=== PATIENT | female | born 1985 | race Caucasian/White ===

== ENCOUNTER 2016-11-19 05:44 | Inpatient (IN) | payer MEDICAID ==
[2016-11-19] MEDS ORDERED: Sodium Chloride 0.9% 10 ML Syringe FLUSH PRN (06:36)
[2016-11-19] MEDS ORDERED: Sodium Chloride 0.9% 2.5 ML Syringe FLUSH PRN (06:36)
[2016-11-19] MEDS ORDERED: Citric Acid/Sodium Citrate Solution 30 ML Cup PO SCH (06:45)
[2016-11-19] MEDS: Lactated Ringers 1,000 ML IV SCH ×4 (06:53→13:53)
[2016-11-19] MEDS ORDERED: ceFAZolin 1 GM Vial ONE (07:10)
[2016-11-19] MEDS ORDERED: Ondansetron 4 MG/2 ML SDV ONE (07:10)
[2016-11-19] MEDS ORDERED: Morphine PF 10 MG/10 ML SDV ONE (07:11)
--- NOTE | 2016-11-19 07:12 | PCM.PREANE ---
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: no symptoms Respiratory: Reports: no symptoms Cardiovascular: Reports: no symptoms GI: Reports: no symptoms Other: Reports: none - PHYSICAL ASSESSMENT HR: 105 O2 Sat by Pulse Oximetry: 99 RR: 20 Height: 4 ft 11 in Weight: 68.492 kg ASA Class: 2E Mental Status: alert & oriented x3 Airway Class: Mallampati = 2 Dentition: Reports: normal dentition Thyro-Mental Finger Breadths: 3 Mouth Opening Finger Breadths: 3 ROM/Head Extension: full Respiratory Status: lungs clear to auscultation bilaterally Cardiovascular Status: regular rate & rhythm, normal S1, S2, no murmur, blood pressure WNL - LAB Values: Laboratory Last Values WBC 14.81 K/uL (4.0-11.0) H 11/19/16 06:52 RBC 4.80 M/uL (4.30-5.90) 11/19/16 06:52 Hgb 10.7 g/dL (12.0-16.0) L 11/19/16 06:52 Hct 33.4 % (36.0-46.0) L 11/19/16 06:52 MCV 69.6 fL (80.0-98.0) L 11/19/16 06:52 MCH 22.3 pg (27.0-32.0) L 11/19/16 06:52 MCHC 32.0 g/dL (31.0-37.0) 11/19/16 06:52 RDW Std Deviation 38.2 fl (28.0-62.0) 11/19/16 06:52 RDW Coeff of Ruth 15 % (11.0-15.0) 11/19/16 06:52 Plt Count 417 K/uL (150-400) H 11/19/16 06:52 MPV 10.10 fL (7.40-12.00) 11/19/16 06:52 Nucleated RBC % 0.4 /100WBC 11/19/16 06:52 Nucleated RBCs # 0 K/uL 11/19/16 06:52 - ALLERGIES Allergies/Adverse Reactions: Allergies Allergy/AdvReac Type Severity Reaction Status Date / Time acetaminophen Allergy Severe Airway Verified 11/06/16 11:02 [From Tylenol Allergy Tightness Multi-Symptom] chlorpheniramine Allergy Severe Airway Verified 11/06/16 11:02 [From Tylenol Allergy Tightness Multi-Symptom] phenylephrine HCl Allergy Severe Airway Verified 11/06/16 11:02 [From Tylenol Allergy Tightness Multi-Symptom] - ANESTHESIA PLAN Anesthesia Type Planned: general anesthesia, spinal - ACKNOWLEDGEMENTS Pt an appropriate candidate for the planned anesthesia: Yes Alternatives and risks of anesthesia discussed w pt/guardian: Yes Pt/Guardian understands and agree with anesthesia plan: Yes PreAnesthesia Questionnaire HEENT History: Reports: None Cardiovascular History: Reports: None Respiratory History: Reports: None Gastrointestinal History: Reports: Cholelithiasis Genitourinary History: Reports: UTI, recurrent PATTERN ROOM ATTENDANT History: Reports: : 4 Para: 3 LMP (Approximate): Musculoskeletal History: Reports: None Neurological History: Reports: None Psychiatric History: Reports: None Endocrine/Metabolic History: Reports: Diabetes, gestational (Diet controlled. Pt reports she has been very poor with checking her blood glucose levels at home ), Obesity/BMI 30+ Hematologic History: Reports: None Immunologic History: Reports: None Oncologic (Cancer) History: Reports: None Dermatologic History: Reports: None, Psoriasis - Infectious Disease History Infectious Disease History: Reports: Chicken pox, MRSA - Past Surgical History HEENT Surgical History: Reports: Adenoidectomy, Myringotomy w tube(s), Tonsillectomy Female Surgical History: Reports: section (x3 previous, 1 - epidural , 2 spinal) - SUBSTANCE USE Smoking Status *Q: Current Every Day Smoker (0.5 PPD) Tobacco Use Within Last Twelve Months: Cigarettes Second Hand Smoke Exposure: No Recreational Drug Use History: Yes Recreational Drug Type: Reports: Marijuana/Hashish (In the last month) Recreational Drug Last Use: 4 days ago - HOME MEDS Home Medications: Home Meds . [No Known Home Meds] 02/24/16 [History] - CURRENT (IN HOUSE) MEDS Current Meds: Current Medications Citric Acid/Sodium Citrate (Bicitra Solution) 30 ml PO .ONCE PIOTR Lactated Ringer's (Ringers, Lactated) 1,000 mls @ 500 mls/hr IV .BOLUS PIOTR Sodium Chloride (Saline Flush) 10 ml FLUSH ASDIRECTED PRN PRN Reason: Keep Vein Open Sodium Chloride (Saline Flush) 2.5 ml FLUSH ASDIRECTED PRN PRN Reason: Keep Vein Open
[2016-11-19] MEDS ORDERED: Oxytocin 10 Units/1 ML SDV ONE (07:13)
--- NOTE | 2016-11-19 07:45 | PCM.LDHP ---
L&D History of Present Illness - General Date of Service: 11/19/16 Admit Problem/Dx: Patient Status Order with Admit Dx/Problem 11/19/16 06:36 Patient Status [ADT] Routine Patient Status: Admit to Inpatient Admission Diagnosis/Problem: Reason for Admit: repeat section Nurse Unit Type: Labor and Delivery Admitting Physician: Jeremy Fall Attending Physician: Jeremy Fall Admission Diagnosis/Problem Admission Diagnosis/Problem Source of Information: Patient History Limitations: Reports: No limitations - History of Present Illness Improves with: Reports: None Worsens with: Reports: None Associated Symptoms: Reports: N - Related Data Allergies/Adverse Reactions: Allergies Allergy/AdvReac Type Severity Reaction Status Date / Time acetaminophen Allergy Severe Airway Verified 11/06/16 11:02 [From Tylenol Allergy Tightness Multi-Symptom] chlorpheniramine Allergy Severe Airway Verified 11/06/16 11:02 [From Tylenol Allergy Tightness Multi-Symptom] phenylephrine HCl Allergy Severe Airway Verified 11/06/16 11:02 [From Tylenol Allergy Tightness Multi-Symptom] Home Medications: Home Meds . 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 Pt reports she has been very poor with checking her blood glucose levels at home ), Obesity/BMI 30+ Hematologic History: Reports: None Immunologic History: Reports: None Oncologic (Cancer) History: Reports: None Dermatologic History: Reports: None, Psoriasis - Infectious Disease History Infectious Disease History: Reports: Chicken pox, MRSA - Past Surgical History HEENT Surgical History: Reports: Adenoidectomy, Myringotomy w tube(s), Tonsillectomy Female Surgical History: Reports: section (x3 previous, 1 - epidural , 2 spinal) Social & Family History - Family History Family Medical History: Noncontributory HEENT: Reports: None Neurological: Reports: CVA - Tobacco Use Smoking Status *Q: Current Every Day Smoker (0.5 PPD) Years of Tobacco use: 10 Packs/Tins Daily: 0.5 Second Hand Smoke Exposure: No - Caffeine Use Caffeine Use: Reports: Coffee, Soda Caffeine Use Comment: 2 drinks/day - Recreational Drug Use Recreational Drug Use: Yes Drug Use in Last 12 Months: Yes Recreational Drug Type: Reports: Marijuana/Hashish (In the last month) Recreational Drug Use Frequency: Socially Recreational Drug Last Use: 4 days ago H&P Review of Systems - Review of Systems: Review Of Systems: See Below General: Reports: no symptoms HEENT: Reports: no symptoms Pulmonary: Reports: no symptoms Cardiovascular: Reports: no symptoms Gastrointestinal: Reports: No symptoms Genitourinary: Reports: no symptoms Musculoskeletal: Reports: no symptoms Skin: Reports: no symptoms Psychiatric: Reports: no symptoms Neurological: Reports: no symptoms Hematologic/Lymphatic: Reports: no symptoms Immunologic: Reports: no symptoms L&D Exam - Exam Exam: See Below - Vital Signs Vital Signs: Last Vital Signs Temp Pulse 105 H 11/19/16 07:12 Resp 20 11/19/16 07:12 BP Pulse Ox 99 11/19/16 07:12 Weight: 68.492 kg - OB Specific Fundal Height in cm: 38 Contraction Intensity: Mild to Moderate movement: active heart tones: present Presentation: Vertex - Patient Data Lab Results last 24 hrs: Laboratory Results - last 24 hr 11/19/16 Range/Units 06:52 WBC 14.81 H (4.0-11.0) K/uL RBC 4.80 (4.30-5.90) M/uL Hgb 10.7 L (12.0-16.0) g/dL Hct 33.4 L (36.0-46.0) % MCV 69.6 L (80.0-98.0) fL MCH 22.3 L (27.0-32.0) pg MCHC 32.0 (31.0-37.0) g/dL RDW Std Deviation 38.2 (28.0-62.0) fl RDW Coeff of Ruth 15 (11.0-15.0) % Plt Count 417 H (150-400) K/uL MPV 10.10 (7.40-12.00) fL Nucleated RBC % 0.4 /100WBC Nucleated RBCs # 0 K/uL Result Diagrams: 11/19/16 06:52 Problem List Initiated/Reviewed/Updated: Yes Orders Last 24hrs: Active Orders 24 hr Category Date Time Status Patient Status [ADT] Routine ADT 11/19/16 06:36 Active Non Stress Test [RC] PER UNIT ROUTINE Care 11/19/16 06:36 Active Notify Provider Vital Signs [RC] PRN Care 11/19/16 06:38 Active Procedure Site Prep Instruct [RC] ASDIRECTED Care 11/19/16 06:36 Active Up ad Christen [RC] ASDIRECTED Care 11/19/16 06:36 Active Verify Patient Consent Obtain [RC] ASDIRECTED Care 11/19/16 06:36 Active Vital Signs [RC] PER UNIT ROUTINE Care 11/19/16 06:36 Active TYPE AND SCREEN [BBK] Routine Lab 11/19/16 06:52 Received Citric Acid/Sodium Citrate [Bicitra Solution] Med 11/19/16 06:45 Active 30 ml PO .ONCE Lactated Ringers [Ringers, Lactated] 1,000 ml Med 11/19/16 06:45 Active IV .BOLUS Sodium Chloride 0.9% [Saline Flush] Med 11/19/16 06:36 Active 10 ml FLUSH ASDIRECTED PRN Sodium Chloride 0.9% [Saline Flush] Med 11/19/16 06:36 Active 2.5 ml FLUSH ASDIRECTED PRN Peripheral IV Insertion Adult [OM.PC] Routine Oth 11/19/16 06:36 Ordered Schedule Procedure [COMM] Per Unit Routine Oth 11/19/16 06:36 Ordered Resuscitation Status Routine Resus Stat 11/19/16 06:36 Ordered Medication Orders Citric Acid/Sodium Citrate (Bicitra Solution) 30 ml PO .ONCE PIOTR Last Admin: 11/19/16 07:18 Dose: 30 ml Lactated Ringer's (Ringers, Lactated) 1,000 mls @ 500 mls/hr IV .BOLUS PIOTR Last Admin: 11/19/16 07:18 Dose: 999 mls/hr Infusion: 11/19/16 07:18 Dose: 0 mls/hr Infusion: 11/19/16 07:18 Dose: 0 mls/hr Admin: 11/19/16 06:53 Dose: 500 mls/hr Sodium Chloride (Saline Flush) 10 ml FLUSH ASDIRECTED PRN PRN Reason: Keep Vein Open Sodium Chloride (Saline Flush) 2.5 ml FLUSH ASDIRECTED PRN PRN Reason: Keep Vein Open Assessment/Plan Comment:: Repeat C/section with tubal ligation approved by the committee.
[2016-11-19] MEDS ORDERED: fentaNYL 100 MCG/2 ML SDV ONE (08:14)
[2016-11-19] MEDS ORDERED: Midazolam 1 MG/ML 2 ML SDV ONE (08:27)
[2016-11-19] MEDS ORDERED: fentaNYL 100 MCG/2 ML SDV IVPUSH PRN ×2 (08:32→09:27)
[2016-11-19] MEDS ORDERED: Naloxone 0.4 MG/ML Syringe IVPUSH PRN (08:32)
[2016-11-19] MEDS ORDERED: Nalbuphine 10 MG/1 ML Vial IVPUSH PRN (08:32)
[2016-11-19] MEDS ORDERED: Octyl 2-Cyanoacrylate 1 Tube ONE (08:34)
[2016-11-19] MEDS ORDERED: Ibuprofen 800 MG Tab PO PRN (08:45)
[2016-11-19] MEDS ORDERED: diphenhydrAMINE 50 MG/ML SDV IVPUSH PRN (08:45)
[2016-11-19] MEDS ORDERED: Lanolin 100% Cream 7 GM Tube TOP PRN (08:45)
[2016-11-19] MEDS ORDERED: Bisacodyl 10 MG Supp RECTAL PRN (08:45)
[2016-11-19] MEDS ORDERED: Ondansetron 4 MG/2 ML SDV IV PRN (08:45)
[2016-11-19] MEDS: Ketorolac 30 MG/ML SDV IVPUSH SCH (09:02)
--- NOTE | 2016-11-19 09:30 | PCM.POSTAN ---
POST ANESTHESIA ASSESSMENT - MENTAL STATUS Mental Status: alert, oriented - VITAL SIGNS Pulse Rate: 62 SaO2: 98 Resp Rate: 11 Blood Pressure: 117/66 - RESPIRATORY Respiratory Status: respiratory rate WNL, airway patent, O2 saturation stable - CARDIOVASCULAR CV Status: pulse rate WNL, blood pressure stable - GASTROINTESTINAL GI Status: no symptoms - PAIN Pain Score: 2 (discomfort behind R shoulder) - POST OP HYDRATION Hydration Status: adequate & stable - OBSERVATIONS Free Text/Narrative:: Pt doing well. Does complain of pain to back of right shoulder - most likely d/ t referred pain from blood on the diaphragm - explained this to patient and she verbalized understanding. Pt finally agrees to take a dose of pain medication prior to return to her room. VSS.
[2016-11-19] MEDS: Docusate Sodium 100 MG Cap PO SCH (09:50)
--- NOTE | 2016-11-19 12:54 | OR ---
SURGEON: Jeremy Fall MD DATE OF PROCEDURE: PREOPERATIVE DIAGNOSES: Term , previous section x3 is scheduled for repeat later this week. She is admitted for an active labor. POSTOPERATIVE DIAGNOSES: Term , previous section x3 is scheduled for repeat later this week. She is admitted for an active labor. OPERATION PERFORMED: Repeat low transverse section with bilateral Lorie tubal ligation. MARINE STEAMFITTER: OR nurse. ANESTHESIA: Spinal by Zahida Lewis and Dr. Collins. ESTIMATED BLOOD LOSS: 700 mL. COMPLICATIONS: None. FINDINGS: Female fetus. scores were reported to be 8 and 9. The weight is not available at this time. INDICATION FOR SURGERY: This patient is term. She is scheduled for elective repeat section later this week. She is 39+ weeks. This is her fourth section. She is approved by the ethics committee for bilateral tubal ligation. PROCEDURE IN DETAIL: The patient was brought to the OR, properly identified, and after adequate level of spinal anesthesia. With a Ramos catheter in the bladder, a low transverse skin incision was done excising the old scar. The Yudi's fascia and rectus fascia were opened in direction of the incision. The 2 recti muscles were and peritoneal cavity was entered. Bladder flap was raised in the usual manner pushing the bladder away from the lower uterine segment. Low transverse uterine incision was done, extended manually with the hand, and fluid was clear. The fetus was in vertex presentation and it is delivered in this way without any problem. Fetus cried immediately. Later on, the scores reported to be [address] Santos was the crime prevention police officer attended the section. The placenta was delivered complete and intact without any problem and then repair of the lower uterine segment was done with 2-0 Vicryl continuous interlocking in 2 layers. Reperitonealization was done with 3-0 Vicryl continuous. Then, attention was paid to the tubes in both side and a segment of the tubes of 2 to 3 cm tied in a knuckle and using chromic catgut transected and sent for histopathology thus bilateral tubal ligation accomplished. Once this got done, then the peritoneal cavity evacuated completely from all blood and blood clot and closed with 3-0 Vicryl continuous. The rectus fascia was closed with #1 PDS double strand continuous. The Yudi's fascia was closed with 3-0 Vicryl continuous. The skin was closed with skin clips Insorb and Dermabond. Instrument and sponge count were correct. The patient tolerated the procedure well, and went to recovery room in stable general condition. ALVIN RENE /[id number]
--- NOTE | 2016-11-19 16:53 | US ---
EXAMINATION: Limited abdominal ultrasound HISTORY: Potential abdominal bleeding COMPARISON: None TECHNIQUE: Grayscale images provided FINDINGS: There is a small amount of free pelvic fluid noted within the provided images. Uterus is n ot well characterized. No definite abdominal masses. IMPRESSION: 1. There is free fluid noted within the abdomen of uncertain significance. Follow-up may be benefici al. Bleeding within the abdomen cannot be excluded with the provided images.
[2016-11-19] MEDS ORDERED: Phenylephrine 10 MG in Sodium Chloride 0.9% 99 ML IV SCH ×3 (18:15→19:15)
[2016-11-19] MEDS ORDERED: NORMAL SALINE IV SCH (18:45)
[2016-11-19] MEDS ORDERED: PHENYLEPHRINE IV SCH (18:45)
[2016-11-20] MEDS: Acetaminophen/oxyCODONE 325-5 MG Tab PO PRN ×4 (00:53→21:23)
[2016-11-20] MEDS: Docusate Sodium 100 MG Cap PO SCH ×3 (01:55→21:23)
[2016-11-20] MEDS: Lactated Ringers 1,000 ML IV SCH (05:03)
[2016-11-20 05:39] LABS: CHLORIDE,CL 107 mmol/L (98-110); SODIUM,NA 137 mmol/L (136-146)
[2016-11-20] MEDS: Ketorolac 30 MG/ML SDV IVPUSH SCH (08:58)
--- NOTE | 2016-11-20 09:15 | PCM.SURGPN ---
- General Info POD#: 1 Functional Status: Reports: pain controlled - Review of Systems General: Reports: no symptoms HEENT: Reports: no symptoms Pulmonary: Reports: no symptoms Cardiovascular: Reports: no symptoms Gastrointestinal: Reports: No symptoms Genitourinary: Reports: no symptoms Musculoskeletal: Reports: no symptoms Skin: Reports: no symptoms Neurological: Reports: no symptoms Psychiatric: Reports: no symptoms - Patient Data Vitals - most recent: Last Vital Signs Temp 36.6 C 11/20/16 07:59 Pulse 78 11/20/16 09:00 Resp 22 H 11/20/16 09:00 BP 107/68 11/20/16 09:00 Pulse Ox 96 11/20/16 09:00 Weight - most recent: 68.492 kg I&O - last 24 hours: Intake & Output 11/19/16 11/20/16 11/20/16 22:59 06:59 14:59 Intake Total 1197 1100 Output Total 250 Balance 1197 850 Lab Results last 24 hrs: Laboratory Results - last 24 hr 11/19/16 11/19/16 11/19/16 Range/Units 06:52 12:44 13:03 Hgb 7.5 L (12.0-16.0) g/dL Hct 23.5 L (36.0-46.0) % Sodium (136-146) mmol/L Potassium (3.5-5.1) mmol/L Chloride (98-110) mmol/L Carbon Dioxide (21-31) mmol/L BUN (6.0-23.0) mg/dL Creatinine (0.6-1.5) mg/dL Est Cr Clr Drug Dosing mL/min Estimated GFR (MDRD) ml/min Glucose (60-110) mg/dL POC Glucose 157 H (60-110) mg/dL Calcium (8.8-10.8) mg/dL Total Bilirubin (0.1-1.5) mg/dL AST (5-40) IU/L ALT (8-54) IU/L Alkaline Phosphatase (40-150) Total Protein (6.0-8.0) g/dL Albumin (3.5-5.0) g/dL Globulin (2.0-3.5) g/dL Albumin/Globulin Ratio (1.3-2.8) Blood Type A POSITIVE Antibody Screen NEGATIVE Crossmatch See Detail 11/19/16 11/19/16 11/19/16 Range/Units 17:14 18:35 23:59 Hgb 10.7 L 11.3 L (12.0-16.0) g/dL Hct 31.7 L 32.3 L (36.0-46.0) % Sodium (136-146) mmol/L Potassium (3.5-5.1) mmol/L Chloride (98-110) mmol/L Carbon Dioxide (21-31) mmol/L BUN (6.0-23.0) mg/dL Creatinine (0.6-1.5) mg/dL Est Cr Clr Drug Dosing mL/min Estimated GFR (MDRD) ml/min Glucose (60-110) mg/dL POC Glucose 104 (60-110) mg/dL Calcium (8.8-10.8) mg/dL Total Bilirubin (0.1-1.5) mg/dL AST (5-40) IU/L ALT (8-54) IU/L Alkaline Phosphatase (40-150) Total Protein (6.0-8.0) g/dL Albumin (3.5-5.0) g/dL Globulin (2.0-3.5) g/dL Albumin/Globulin Ratio (1.3-2.8) Blood Type Antibody Screen Crossmatch 11/20/16 11/20/16 Range/Units 05:00 05:00 Hgb 10.5 L (12.0-16.0) g/dL Hct 30.6 L (36.0-46.0) % Sodium 137 (136-146) mmol/L Potassium 4.5 (3.5-5.1) mmol/L Chloride 107 (98-110) mmol/L Carbon Dioxide 20 L (21-31) mmol/L BUN 10 (6.0-23.0) mg/dL Creatinine 0.7 (0.6-1.5) mg/dL Est Cr Clr Drug Dosing 83.64 mL/min Estimated GFR (MDRD) > 60.0 ml/min Glucose 101 (60-110) mg/dL POC Glucose (60-110) mg/dL Calcium 7.6 L (8.8-10.8) mg/dL Total Bilirubin 0.5 (0.1-1.5) mg/dL AST 14 (5-40) IU/L ALT 8 (8-54) IU/L Alkaline Phosphatase 125 (40-150) Total Protein 4.3 L (6.0-8.0) g/dL Albumin 2.4 L (3.5-5.0) g/dL Globulin 1.9 L (2.0-3.5) g/dL Albumin/Globulin Ratio 1.3 (1.3-2.8) Blood Type Antibody Screen Crossmatch Med Orders - Current: Current Medications Bisacodyl (Dulcolax) 10 mg RECTAL .ONCE PRN PRN Reason: Constipation Citric Acid/Sodium Citrate (Bicitra Solution) 30 ml PO .ONCE PIOTR Last Admin: 11/19/16 07:18 Dose: 30 ml Diphenhydramine HCl (Benadryl) 25 mg IVPUSH Q6H PRN PRN Reason: Itching or Nausea Docusate Sodium (Colace) 100 mg PO BID PIOTR Last Admin: 11/20/16 01:55 Dose: Not Given Emollient Ointment (Lansinoh Hpa) 0 gm TOP ASDIRECTED PRN PRN Reason: Sore Nipples Lactated Ringer's (Ringers, Lactated) 1,000 mls @ 500 mls/hr IV .BOLUS PIOTR Last Admin: 11/19/16 07:18 Dose: 999 mls/hr Lactated Ringer's (Ringers, Lactated) 1,000 mls @ 125 mls/hr IV ASDIRECTED PIOTR Last Admin: 11/20/16 05:03 Dose: 125 mls/hr Phenylephrine HCl 10 mg/ (Sodium Chloride) 100 mls @ 12 mls/hr IV TITRATE PIOTR; 0.02 MG/MIN PRN Reason: Protocol Last Titration: 11/20/16 03:30 Dose: 0 mg/min, 0 mls/hr Ibuprofen (Motrin) 800 mg PO Q8H PRN PRN Reason: mild pain or fever Ondansetron HCl (Zofran) 4 mg IV Q4H PRN PRN Reason: Nausea/Vomiting Oxycodone/Acetaminophen (Percocet 325-5 Mg) 1 tab PO Q4H PRN PRN Reason: Pain (moderate 4-6) Last Admin: 11/20/16 04:59 Dose: 1 tab Oxycodone/Acetaminophen (Percocet 325-5 Mg) 2 tab PO Q4H PRN PRN Reason: Pain (moderate 4-6) Sodium Chloride (Saline Flush) 10 ml FLUSH ASDIRECTED PRN PRN Reason: Keep Vein Open Sodium Chloride (Saline Flush) 2.5 ml FLUSH ASDIRECTED PRN PRN Reason: Keep Vein Open Discontinued Medications Cefazolin Sodium (Ancef) Confirm Administered Dose 1 gm .ROUTE .STK-MED ONE Stop: 11/19/16 07:11 Fentanyl (Sublimaze) Confirm Administered Dose 100 mcg .ROUTE .STK-MED ONE Stop: 11/19/16 08:15 Fentanyl (Sublimaze) 50 mcg IVPUSH Q60M PRN PRN Reason: Breakthrough Pain Stop: 11/20/16 08:33 Fentanyl (Sublimaze) 50 mcg IVPUSH .Q5MIN PRN PRN Reason: Pain Stop: 11/23/16 09:28 Last Admin: 11/19/16 09:30 Dose: 50 mcg Phenylephrine HCl 10 mg/ (Sodium Chloride) 100 mls @ 0.3 drops/hr IV TITRATE PIOTR PRN Reason: Protocol Phenylephrine HCl 10 mg/ (Sodium Chloride) 100 mls @ 0 mls/hr IV TITRATE PIOTR; Titrate PRN Reason: Protocol Phenylephrine HCl 10 mg/ (Sodium Chloride) 100 mls @ 12 mls/hr IV TITRATE PIOTR; 0.02 MG/MIN PRN Reason: Protocol Ketorolac Tromethamine (Toradol) 30 mg IVPUSH Q6H PIOTR Stop: 11/20/16 08:46 Last Admin: 11/20/16 08:58 Dose: Not Given Midazolam HCl (Versed 1 Mg/Ml) Confirm Administered Dose 2 mg .ROUTE .STK-MED ONE Stop: 11/19/16 08:28 Morphine Sulfate (Duramorph Pf) Confirm Administered Dose 10 mg .ROUTE .STK-MED ONE Stop: 11/19/16 07:12 Nalbuphine HCl (Nubain) 2.5 mg IVPUSH Q3H PRN PRN Reason: Pruritis Stop: 11/20/16 08:33 Naloxone HCl (Narcan) 0.1 mg IVPUSH ONETIME PRN PRN Reason: RR<6 WITH STIMULATION Stop: 11/20/16 08:34 Octyl Cyanoacrylate (Dermabond Advance) Confirm Administered Dose 1 applic .ROUTE .STK-MED ONE Stop: 11/19/16 08:35 Ondansetron HCl (Zofran) Confirm Administered Dose 4 mg .ROUTE .STK-MED ONE Stop: 11/19/16 07:11 Oxytocin (Pitocin) Confirm Administered Dose 20 unit .ROUTE .STK-MED ONE Stop: 11/19/16 07:14 - Exam Wound/Incisions: healing well General: alert, oriented HEENT: Pupils equal Neck: supple Lungs: Clear to auscultation, Normal respiratory effort Cardiovascular: regular rate, regular rhythm Abdomen: bowel sounds present, soft, no tenderness, no distension Extremities: no edema Skin: warm, dry, intact Neurological: no new focal deficit Psy/Mental Status: alert, normal affect, normal mood - Problem List Review Problem List Initiated/Reviewed/Updated: Yes - My Orders Last 24 Hours: Active Orders 24 hr Category Date Time Status Patient Status [ADT] Routine ADT 11/19/16 08:45 Active Ambulate [RC] PER UNIT ROUTINE Care 11/19/16 08:45 Active Antiembolic Devices [RC] PER UNIT ROUTINE Care 11/19/16 08:46 Active Bradycardia-Neuroaxis [employer] [RC] ROUTINE Care 11/19/16 08:32 Active Communication Order [RC] PER UNIT ROUTINE Care 11/19/16 08:45 Active Communication Order [RC] PER UNIT ROUTINE Care 11/19/16 08:45 Active Communication Order [RC] Per Unit Routine Care 11/19/16 08:45 Active Hypertension-Neuroaxis [employer] [RC] ROUTINE Care 11/19/16 08:32 Active Hypotension-Neuroaxis [employer] [RC] ROUTINE Care 11/19/16 08:32 Active May Shower [RC] ASDIRECTED Care 11/19/16 08:45 Active Oxygen Therapy [RC] PER UNIT ROUTINE Care 11/19/16 08:32 Active RT Incentive Spirometry [RC] ASDIRECTED Care 11/19/16 08:45 Active Vital Signs [RC] PER UNIT ROUTINE Care 11/19/16 08:45 Active Vital Signs [RC] Q1H Care 11/19/16 08:32 Active Abdomen Ltd [US] Urgent Exams 11/19/16 18:34 Taken HEMOGLOBIN/HEMATOCRIT,HH [HEME] Routine Lab 11/20/16 12:00 Ordered Acetaminophen/oxyCODONE [Percocet 325-5 MG] Med 11/19/16 08:45 Active 1 tab PO Q4H PRN Acetaminophen/oxyCODONE [Percocet 325-5 MG] Med 11/19/16 08:45 Active 2 tab PO Q4H PRN Bisacodyl [Dulcolax] Med 11/19/16 08:45 Active 10 mg RECTAL .ONCE PRN Docusate Sodium [Colace] Med 11/19/16 09:00 Active 100 mg PO BID Ibuprofen [Motrin] Med 11/19/16 08:45 Active 800 mg PO Q8H PRN Lactated Ringers [Ringers, Lactated] 1,000 ml Med 11/19/16 08:45 Active IV ASDIRECTED Lanolin [Lansinoh HPA] Med 11/19/16 08:45 Active See Dose Instructions TOP ASDIRECTED PRN Ondansetron [Zofran] Med 11/19/16 08:45 Active 4 mg IV Q4H PRN Phenylephrine [Juan Ramon-Synephrine] 10 mg Med 11/19/16 19:15 Active Sodium Chloride 0.9% [Normal Saline] 99 ml IV TITRATE diphenhydrAMINE [Benadryl] Med 11/19/16 08:45 Active 25 mg IVPUSH Q6H PRN AN Neuroaxis [employer] Precaution Reflex [OM.PC] PER Oth 11/19/16 08:45 Ordered UNIT ROUTINE AN Neuroaxis [employer] Precaution Reflex [OM.PC] PER Ot 11/20/16 08:45 Ordered UNIT ROUTINE Assess Lochia [WOMSER] Per Unit Routine Ot 11/19/16 08:45 Ordered Assess Uterine Involution [WOMSER] Per Unit Routine Oth 11/19/16 08:45 Ordered Breast Pump [WOMSER] Per Unit Routine Oth 11/19/16 08:45 Ordered Peripheral IV Discontinue [OM.PC] Routine Ot 11/19/16 08:45 Ordered Sequential Compression Device [OM.PC] Per Unit Routine Ot 11/19/16 08:45 Ordered Transfuse PRBC [Transfuse Red Blood Cells] [COMM] Stat Ot 11/19/16 19:14 Ordered Medication Orders Bisacodyl (Dulcolax) 10 mg RECTAL .ONCE PRN PRN Reason: Constipation Citric Acid/Sodium Citrate (Bicitra Solution) 30 ml PO .ONCE PIOTR Last Admin: 11/19/16 07:18 Dose: 30 ml Diphenhydramine HCl (Benadryl) 25 mg IVPUSH Q6H PRN PRN Reason: Itching or Nausea Docusate Sodium (Colace) 100 mg PO BID PIOTR Last Admin: 11/20/16 01:55 Dose: Admin: 11/19/16 09:50 Dose: Not Given Emollient Ointment (Lansinoh Hpa) 0 gm TOP ASDIRECTED PRN PRN Reason: Sore Nipples Lactated Ringer's (Ringers, Lactated) 1,000 mls @ 500 mls/hr IV .BOLUS PIOTR Last Admin: 11/19/16 07:18 Dose: 999 mls/hr Infusion: 11/19/16 07:18 Dose: 0 mls/hr Infusion: 11/19/16 07:18 Dose: 0 mls/hr Admin: 11/19/16 06:53 Dose: 500 mls/hr Lactated Ringer's (Ringers, Lactated) 1,000 mls @ 125 mls/hr IV ASDIRECTED PIOTR Last Admin: 11/20/16 05:03 Dose: 125 mls/hr Infusion: 11/19/16 15:53 Dose: 500 mls/hr Admin: 11/19/16 13:53 Dose: 500 mls/hr Infusion: 11/19/16 13:53 Dose: 125 mls/hr Admin: 11/19/16 10:43 Dose: 125 mls/hr Phenylephrine HCl 10 mg/ (Sodium Chloride) 100 mls @ 12 mls/hr IV TITRATE PIOTR; 0.02 MG/MIN PRN Reason: Protocol Last Titration: 11/20/16 03:30 Dose: 0 mg/min, 0 mls/hr Titration: 11/20/16 03:14 Dose: 0 mg/min, 3.6 mls/hr Titration: 11/20/16 02:50 Dose: 0 mg/min, 4.8 mls/hr Titration: 11/20/16 02:33 Dose: 0.01 mg/min, 6 mls/hr Titration: 11/20/16 02:11 Dose: 0.01 mg/min, 7.2 mls/hr Titration: 11/20/16 01:56 Dose: 0.01 mg/min, 8.4 mls/hr Titration: 11/20/16 00:55 Dose: 0.01 mg/min, 9.6 mls/hr Titration: 11/19/16 23:39 Dose: 0.01 mg/min, 10.8 mls/hr Admin: 11/19/16 19:15 Dose: 0.02 mg/min, 12 mls/hr Ibuprofen (Motrin) 800 mg PO Q8H PRN PRN Reason: mild pain or fever Ondansetron HCl (Zofran) 4 mg IV Q4H PRN PRN Reason: Nausea/Vomiting Oxycodone/Acetaminophen (Percocet 325-5 Mg) 1 tab PO Q4H PRN PRN Reason: Pain (moderate 4-6) Last Admin: 11/20/16 04:59 Dose: 1 tab Admin: 11/20/16 00:53 Dose: 1 tab Oxycodone/Acetaminophen (Percocet 325-5 Mg) 2 tab PO Q4H PRN PRN Reason: Pain (moderate 4-6) Sodium Chloride (Saline Flush) 10 ml FLUSH ASDIRECTED PRN PRN Reason: Keep Vein Open Sodium Chloride (Saline Flush) 2.5 ml FLUSH ASDIRECTED PRN PRN Reason: Keep Vein Open - Assessment Assessment (Free Text/Narrative):: Blood pressure and H&H is stabilized now the patient is making adequate urine. I would repeat the H&H at noon start her on liquid diet today and we'll reevaluate at noon.
--- NOTE | 2016-11-20 09:39 | PCM48HPAN ---
Post Anesthesia Note - EVALUATION WITHIN 48HRS OF ANESTHETIC Vital Signs in Normal Range: Yes Patient Participated in Evaluation: Yes Respiratory Function Stable: Yes Airway Patent: Yes Cardiovascular Function Stable: Yes Hydration Status Stable: Yes Pain Control Satisfactory: Yes Nausea and Vomiting Control Satisfactory: Yes Mental Status Recovered: Yes - COMMENTS/OBSERVATIONS Free Text/Narrative:: Pt has had some significant abdominal bleeding and was tx to ICU yesterday. After receiving 4 units PRBCs and being weaned off a Juan Ramon gtt, pt is stable. She verbalizes that she actually feels better this morning despite everything she has been thru. It appears Dr. Fall will reevaluate her @ noon today.
--- NOTE | 2016-11-20 14:31 | US ---
EXAM DATE: 11/19/16 PATIENT'S AGE: 31 Patient: RITA MARSH Facility: [place], [place] : 1985 Study: US Abdomen [id number] 7:13:20 PM Ordering Physician: Eufemia Luna Final Report: INDICATION: this morning with hypotension TECHNIQUE: Ultrasound abdomen limited. Sonographic images of the abdomen were obtained using ramsey-scale images. COMPARISON: Same date at 1:25 p.m. FINDINGS: Limited ultrasound of the abdomen demonstrates slight increase in fluid within the left abdomen compared to the earlier ultrasound. There is also moderate amount of fluid surrounding the spleen and left kidney and a small amount of fluid within the right side of the abdomen. Small amount of debris is noted within the uterus, likely within normal limits for post state. IMPRESSION: Slight increase in free fluid within the abdomen and pelvis. These findings were discussed with at 11/20/2015 on 11/19/2016. Dictated by Elma Mclaughlin MD @ Nov 19 2016 7:33PM (Electronic Signature) Report Signed by Proxy and Original Signed Document filed in the Medical Record. [facility]
[2016-11-21] MEDS: Acetaminophen/oxyCODONE 325-5 MG Tab PO PRN ×3 (00:45→11:49)
--- NOTE | 2016-11-21 07:02 | PN ---
Ms. Ellsworth is 31. She had a repeat section with tubal ligation early this morning. The patient had no intraoperative complication and no evidence of bleeding. Around 1:30, the patient started getting hypotensive and her blood pressure was ranging anywhere between 75/40, pulse is about 110. She was making urine, but she could not make an adequate amount of urine. I did a stat H and H on the patient and hemoglobin was 6.4, which has dropped from 10 preoperatively. The patient was typed and crossed for 4 units and 2 units of packed cells transfused immediately. The patient improved; however, just continued to be fragile as far as blood pressure and pulse. We decided to move the patient to the intensive care for further monitoring and better observation. Repeated her H and H. After the blood transfusion, hemoglobin is 10 and hematocrit of 30, which is equivalent to what it was before preoperatively. The patient was alert and oriented to time and place. Her color looked better. She started making urine. Abdominal ultrasound shows there is some collection of fluid on the left side, could represent intraabdominal bleed. At this time, I discussed this finding with the patient and I elected at this time, to give her more blood transfusion and to manage her conservatively and to watch her blood pressure, urine output, and pulse, and repeat her hematocrit and hemoglobin. If the patient continued to be stable, currently her blood pressure is holding and stable, then we will continue with our conservative management. If the patient's blood pressure drops further, then I was planning to take the patient back to Surgery and do exploration trying to see if there any source of the bleeding. I discussed this plan of management with Dr. Collins and Dr. Roman Lewis, and I also explained it to the patient and her and currently, we can proceed with conservative approach and management. ALVIN / EDGARD /[id number]
[2016-11-21] MEDS: Docusate Sodium 100 MG Cap PO SCH (08:34)
[2016-11-21 13:20] VITALS: BP 134/78
--- NOTE | 2016-11-21 15:42 | PCM.DCSUM1 ---
Discharge Summary - Discharge Data Discharge Date: 11/21/16 Discharge Disposition: Home, Self-Care 01 Condition: Good - Discharge Plan Home Medications: Home Meds . [No Known Home Meds] 02/24/16 [History] Referrals: Jeremy Fall MD [Physician] - (1 week appointment: November 27 at 3 pm 6 week appointment: January 07 at 3 pm) - General Info Date of Service: 11/21/16 Functional Status: Reports: pain controlled - Review of Systems General: Reports: no symptoms HEENT: Reports: no symptoms Pulmonary: Reports: no symptoms Cardiovascular: Reports: no symptoms Gastrointestinal: Reports: No symptoms Genitourinary: Reports: no symptoms Musculoskeletal: Reports: no symptoms Skin: Reports: no symptoms Neurological: Reports: no symptoms Psychiatric: Reports: no symptoms - Patient Data Vitals - Most Recent: Last Vital Signs Temp 37.1 C 11/21/16 12:00 Pulse 98 11/21/16 12:00 Resp 18 11/21/16 12:00 BP 134/78 11/21/16 12:00 Pulse Ox 100 11/21/16 12:00 Weight - Most Recent: 68.492 kg Lab Results - Last 24 hrs: Laboratory Results - last 24 hr 11/21/16 Range/Units 08:45 Hgb 8.9 L (12.0-16.0) g/dL Hct 26.3 L (36.0-46.0) % Med Orders - Current: Current Medications Bisacodyl (Dulcolax) 10 mg RECTAL .ONCE PRN PRN Reason: Constipation Citric Acid/Sodium Citrate (Bicitra Solution) 30 ml PO .ONCE PIOTR Last Admin: 11/19/16 07:18 Dose: 30 ml Diphenhydramine HCl (Benadryl) 25 mg IVPUSH Q6H PRN PRN Reason: Itching or Nausea Docusate Sodium (Colace) 100 mg PO BID PIOTR Last Admin: 11/21/16 08:34 Dose: Not Given Emollient Ointment (Lansinoh Hpa) 0 gm TOP ASDIRECTED PRN PRN Reason: Sore Nipples Lactated Ringer's (Ringers, Lactated) 1,000 mls @ 500 mls/hr IV .BOLUS PIOTR Last Admin: 11/19/16 07:18 Dose: 999 mls/hr Phenylephrine HCl 10 mg/ (Sodium Chloride) 100 mls @ 12 mls/hr IV TITRATE PIOTR; 0.02 MG/MIN PRN Reason: Protocol Last Titration: 11/20/16 03:30 Dose: 0 mg/min, 0 mls/hr Ibuprofen (Motrin) 800 mg PO Q8H PRN PRN Reason: mild pain or fever Last Admin: 11/20/16 13:43 Dose: 800 mg Ondansetron HCl (Zofran) 4 mg IV Q4H PRN PRN Reason: Nausea/Vomiting Oxycodone/Acetaminophen (Percocet 325-5 Mg) 1 tab PO Q4H PRN PRN Reason: Pain (moderate 4-6) Last Admin: 11/20/16 21:23 Dose: 1 tab Oxycodone/Acetaminophen (Percocet 325-5 Mg) 2 tab PO Q4H PRN PRN Reason: Pain (moderate 4-6) Last Admin: 11/21/16 11:49 Dose: 2 tab Sodium Chloride (Saline Flush) 10 ml FLUSH ASDIRECTED PRN PRN Reason: Keep Vein Open Sodium Chloride (Saline Flush) 2.5 ml FLUSH ASDIRECTED PRN PRN Reason: Keep Vein Open Discontinued Medications Cefazolin Sodium (Ancef) Confirm Administered Dose 1 gm .ROUTE .STK-MED ONE Stop: 11/19/16 07:11 Fentanyl (Sublimaze) Confirm Administered Dose 100 mcg .ROUTE .STK-MED ONE Stop: 11/19/16 08:15 Fentanyl (Sublimaze) 50 mcg IVPUSH Q60M PRN PRN Reason: Breakthrough Pain Stop: 11/20/16 08:33 Fentanyl (Sublimaze) 50 mcg IVPUSH .Q5MIN PRN PRN Reason: Pain Stop: 11/23/16 09:28 Last Admin: 11/19/16 09:30 Dose: 50 mcg Lactated Ringer's (Ringers, Lactated) 1,000 mls @ 125 mls/hr IV ASDIRECTED PIOTR Last Admin: 11/20/16 05:03 Dose: 125 mls/hr Phenylephrine HCl 10 mg/ (Sodium Chloride) 100 mls @ 0.3 drops/hr IV TITRATE PIOTR PRN Reason: Protocol Phenylephrine HCl 10 mg/ (Sodium Chloride) 100 mls @ 0 mls/hr IV TITRATE PIOTR; Titrate PRN Reason: Protocol Phenylephrine HCl 10 mg/ (Sodium Chloride) 100 mls @ 12 mls/hr IV TITRATE PIOTR; 0.02 MG/MIN PRN Reason: Protocol Ketorolac Tromethamine (Toradol) 30 mg IVPUSH Q6H PIOTR Stop: 11/20/16 08:46 Last Admin: 11/20/16 08:58 Dose: Not Given Midazolam HCl (Versed 1 Mg/Ml) Confirm Administered Dose 2 mg .ROUTE .STK-MED ONE Stop: 11/19/16 08:28 Morphine Sulfate (Duramorph Pf) Confirm Administered Dose 10 mg .ROUTE .STK-MED ONE Stop: 11/19/16 07:12 Nalbuphine HCl (Nubain) 2.5 mg IVPUSH Q3H PRN PRN Reason: Pruritis Stop: 11/20/16 08:33 Naloxone HCl (Narcan) 0.1 mg IVPUSH ONETIME PRN PRN Reason: RR<6 WITH STIMULATION Stop: 11/20/16 08:34 Octyl Cyanoacrylate (Dermabond Advance) Confirm Administered Dose 1 applic .ROUTE .STK-MED ONE Stop: 11/19/16 08:35 Ondansetron HCl (Zofran) Confirm Administered Dose 4 mg .ROUTE .STK-MED ONE Stop: 11/19/16 07:11 Oxytocin (Pitocin) Confirm Administered Dose 20 unit .ROUTE .STK-MED ONE Stop: 11/19/16 07:14 - Exam General: Reports: alert, oriented HEENT: Reports: Pupils equal, Pupils reactive, EOMI, Mucous membr. moist/pink Neck: Reports: supple Lungs: Reports: Clear to auscultation, Normal respiratory effort Cardiovascular: Reports: regular rate, regular rhythm Abdomen: Reports: bowel sounds present, soft, no tenderness, no distension (Female) Exam: Normal external exam, Normal speculum exam, Normal bimanual exam Rectal (Female) Exam: Normal Exam, Normal rectal tone Back Exam: Reports: normal inspection, full range of motion Extremities: Reports: no edema, normal pulses Skin: Reports: warm, dry, intact Wound/Incisions: Reports: healing well Neurological: Reports: no new focal deficit Psy/Mental Status: Reports: alert, normal affect, normal mood *Q Meaningful Use (DIS) - VTE *Q VTE Criteria *Q: - Stroke *Q Stroke Criteria *Q: - AMI *Q AMI Criteria *Q:
== END 2016-11-21 16:50 | disposition home or self-care (01) | DRG 765 ==
LOC: MW.OBCHECK 05:44 → MW.OB 05:47 → OBSVTOIN 06:36 → MW.OBCHECK 06:36 → MW.OB 06:36 → MW.ICU 18:07 → MW.OB 11-20 20:10
PROVIDERS: ADMIT Obstetrics & Gynecology; ATTEND Obstetrics & Gynecology
PROC: 10D00Z1 Extraction of Products of Conception, Low, Open Approach (ICD-10-PCS; principal; 2016-11-19)
PROC: 0UB70ZZ Excision of Bilateral Fallopian Tubes, Open Approach (ICD-10-PCS; 2016-11-19)
DX: O34.211 Maternal care for low transverse scar from previous cesarean delivery (principal); O99.324 Drug use complicating childbirth; N85.8 Other specified noninflammatory disorders of uterus; Z3A.39 39 weeks gestation of pregnancy; Z37.0 Single live birth; O24.420 Gestational diabetes mellitus in childbirth, diet controlled; O99.214 Obesity complicating childbirth; Z68.30 Body mass index [BMI] 30.0-30.9, adult; O99.334 Smoking (tobacco) complicating childbirth; F17.200 Nicotine dependence, unspecified, uncomplicated; F12.90 Cannabis use, unspecified, uncomplicated; Z86.14 Personal history of Methicillin resistant Staphylococcus aureus infection; Z88.6 Allergy status to analgesic agent; Z88.8 Allergy status to other drugs, medicaments and biological substances
CPT/HCPCS: 01961; 36415; 36430; 59025; 76705; 76705-26; 80053; 82962; 85014; 85018; 85027; 86850; 86900; 86901; 86920; 86921; 86922; 88302; A9270-GY; J0690; J1885; J2250; J2270; J2370; J2405; J2590; J3010; J7030; J7120; P9016

== ENCOUNTER 2016-11-22 05:37 | Emergency (ER) | payer MEDICAID ==
[2016-11-22] MEDS ORDERED: Ketorolac 30 MG/ML SDV IVPUSH ONE (05:53)
[2016-11-22] MEDS ORDERED: Sodium Chloride 0.9% 1,000 ML IV ONE (05:54)
[2016-11-22] MEDS ORDERED: Ondansetron 4 MG/2 ML SDV IVPUSH ONE (05:54)
--- NOTE | 2016-11-22 05:57 | EDM.PDOC ---
<Fidel Stratton J - Last Filed: 11/22/16 06:43> ED HPI GENERAL MEDICAL PROBLEM - General Chief Complaint: TRANSITION MGR Problem Stated Complaint: THROWING UP Time Seen by Provider: 11/22/16 05:45 - History of Present Illness INITIAL COMMENTS - FREE TEXT/NARRATIVE: HISTORY AND PHYSICAL: History of present illness: Patient 31-year-old white female with status post repeat section with tubal ligation which she reports hemorrhagic complication and was in intensive care unit for one day per history she stabilized and discharged home she has history of cholelithiasis and has had prior episodes of biliary colic and presents now after 24 hours of abdominal pain with nausea and vomiting she is on Percocet and was in the hospital she also complained of constipation no fever no chills. Review of systems: As per history of present illness and below otherwise all systems reviewed and negative. Past medical history: As per history of present illness and as reviewed below otherwise noncontributory. Surgical history: As per history of present illness and as reviewed below otherwise noncontributory. Social history: No reported history of drug or alcohol abuse. Family history: As per history of present illness and as reviewed below otherwise noncontributory. Physical exam: HEENT: Atraumatic, normocephalic, pupils reactive, negative for conjunctival pallor or scleral icterus, mucous membranes moist, throat clear, neck supple, nontender, trachea midline. Lungs: Clear to auscultation, breath sounds equal bilaterally, chest nontender. Heart: S1S2, regular, negative for clicks, rubs, or JVD. Abdomen: Soft, protuberant with nonlocalized tenderness across her upper abdomen. Negative for masses or hepatosplenomegaly. Negative for costovertebral tenderness. Pelvis: Stable nontender. Genitourinary: Deferred. Rectal: Deferred. Extremities: Atraumatic, negative for cords or calf pain. Neurovascular unremarkable. Neuro: Awake, alert, oriented. Cranial nerves II through XII unremarkable. Cerebellum unremarkable. Motor and sensory unremarkable throughout. Exam nonfocal. Diagnostics: CBC CMP lipase gallbladder ultrasound chest x-ray Therapeutics: Normal saline 1 L bolus Zofran 4 mg IV Toradol 30 mg IV Impression: #1 abdominal pain #2 history of cholelithiasis #3 status post vaginal delivery #4 nausea/vomiting Definitive disposition and diagnosis as appropriate pending reevaluation and review of above. Abdomen Pain Score (Numeric/FACES): 10 - Related Data Allergies Allergy/AdvReac Type Severity Reaction Status Date / Time acetaminophen Allergy Severe Airway Verified 11/22/16 05:47 [From Tylenol Allergy Tightness Multi-Symptom] chlorpheniramine Allergy Severe Airway Verified 11/22/16 05:47 [From Tylenol Allergy Tightness Multi-Symptom] phenylephrine HCl Allergy Severe Airway Verified 11/22/16 05:47 [From Tylenol Allergy Tightness Multi-Symptom] Home Meds: Home Meds oxyCODONE HCl/Acetaminophen [Percocet 7.5-325 mg Tablet] 1 each PO Q4H PRN #30 tablet 11/21/16 [Rx] Ondansetron HCl [Zofran] 4 mg PO Q8HR PRN #12 tablet 11/22/16 [Rx] Past Medical History HEENT History: Reports: None Cardiovascular History: Reports: None Respiratory History: Reports: None Gastrointestinal History: Reports: Cholelithiasis Genitourinary History: Reports: UTI, recurrent TRANSITION MGR History: Reports: Musculoskeletal History: Reports: None Neurological History: Reports: None Psychiatric History: Reports: None Endocrine/Metabolic History: Reports: Diabetes, gestational (Diet controlled. Pt reports she has been very poor with checking her blood glucose levels at home ), Obesity/BMI 30+ Hematologic History: Reports: None Immunologic History: Reports: None Oncologic (Cancer) History: Reports: None Dermatologic History: Reports: None, Psoriasis - Infectious Disease History Infectious Disease History: Reports: Chicken pox, MRSA - Past Surgical History HEENT Surgical History: Reports: Adenoidectomy, Myringotomy w tube(s), Tonsillectomy Female Surgical History: Reports: section (x3 previous, 1 - epidural , 2 spinal) Social & Family History - Family History Family Medical History: Noncontributory HEENT: Reports: None Neurological: Reports: CVA - Tobacco Use Smoking Status *Q: Current Every Day Smoker (0.5 PPD) Years of Tobacco use: 10 Packs/Tins Daily: 0.5 Second Hand Smoke Exposure: No - Caffeine Use Caffeine Use: Reports: Coffee, Soda Caffeine Use Comment: 2 drinks/day - Recreational Drug Use Recreational Drug Use: Yes Drug Use in Last 12 Months: Yes Recreational Drug Type: Reports: Marijuana/Hashish (In the last month) Recreational Drug Use Frequency: Socially Recreational Drug Last Use: 4 days ago ED ROS GENERAL - Review of Systems Review Of Systems: ROS reveals no pertinent complaints other than HPI. ED EXAM, GENERAL - Physical Exam Exam: See Below (See dictated) Course - Vital Signs Last Recorded V/S: Last Vital Signs Temp 36.4 C 11/22/16 08:16 Pulse 76 11/22/16 08:16 Resp 18 11/22/16 08:16 BP 109/69 11/22/16 08:16 Pulse Ox 97 11/22/16 08:16 - Orders/Labs/Meds Orders: Active Orders 24 hr Category Date Time Status Abdomen Pelvis w Cont [CT] Stat Exams 11/22/16 06:50 Taken Chest 1V Frontal [CR] Stat Exams 11/22/16 05:57 Taken Gallbladder [Abdomen Ltd] [US] Stat Exams 11/22/16 05:54 Taken URINALYSIS W/MICROSCOPIC [UA W/MICROSCOPIC] [URIN] Stat Lab 11/22/16 05:53 Uncollected Labs: Laboratory Tests 11/22/16 11/22/16 Range/Units 05:44 05:44 WBC 16.41 H (4.0-11.0) K/uL RBC 3.74 L (4.30-5.90) M/uL Hgb 9.9 L (12.0-16.0) g/dL Hct 29.4 L (36.0-46.0) % MCV 78.6 L (80.0-98.0) fL MCH 26.5 L (27.0-32.0) pg MCHC 33.7 (31.0-37.0) g/dL RDW Std Deviation 52.5 (28.0-62.0) fl RDW Coeff of Ruth 18 H (11.0-15.0) % Plt Count 291 (150-400) K/uL MPV 9.40 (7.40-12.00) fL Neut % (Auto) 77.8 (48.0-80.0) % Lymph % (Auto) 13.3 L (16.0-40.0) % [place] % (Auto) 8.1 (0.0-15.0) % Eos % (Auto) 0.7 (0.0-7.0) % Baso % (Auto) 0.1 (0.0-1.5) % Neut # 12.8 H (1.4-5.7) K/uL Lymph # 2.2 (0.6-2.4) K/uL [place] # 1.3 H (0.0-0.8) K/uL Eos # 0.1 (0.0-0.7) K/uL Baso # 0.0 (0.0-0.1) K/uL Nucleated RBC % 0.0 /100WBC Nucleated RBCs # 0 K/uL Sodium 138 (136-146) mmol/L Potassium 4.1 (3.5-5.1) mmol/L Chloride 105 (98-110) mmol/L Carbon Dioxide 20 L (21-31) mmol/L BUN 7 (6.0-23.0) mg/dL Creatinine 0.6 (0.6-1.5) mg/dL Est Cr Clr Drug Dosing TNP Estimated GFR (MDRD) > 60.0 ml/min Glucose 105 (60-110) mg/dL Calcium 9.4 (8.8-10.8) mg/dL Total Bilirubin 0.7 (0.1-1.5) mg/dL AST 13 (5-40) IU/L ALT 9 (8-54) IU/L Alkaline Phosphatase 136 (40-150) Total Protein 6.3 (6.0-8.0) g/dL Albumin 3.0 L (3.5-5.0) g/dL Globulin 3.3 (2.0-3.5) g/dL Albumin/Globulin Ratio 0.9 L (1.3-2.8) Lipase < 8 (7-80) U/L Meds: Medications Discontinued Medications Generic Name Dose Route Start Last Admin Trade Name Freq PRN Reason Stop Dose Admin Sodium Chloride 1,000 mls @ 999 mls/hr 11/22/16 05:54 11/22/16 05:59 Normal Saline IV 11/22/16 06:54 999 mls/hr .Bolus ONE Administration Iopamidol 100 ml 11/22/16 07:14 11/22/16 07:19 Isovue Multipack-370 (76%) IVPUSH 11/22/16 07:15 500 ml ONETIME STA Administration Ketorolac Tromethamine 30 mg 11/22/16 05:53 11/22/16 05:59 Toradol IVPUSH 11/22/16 05:54 30 mg ONETIME ONE Administration Ondansetron HCl 4 mg 11/22/16 05:54 11/22/16 06:00 Zofran IVPUSH 11/22/16 05:55 4 mg ONETIME ONE Administration Departure - Departure Disposition: Home, Self-Care 01 Clinical Impression: Enteritis, Postoperative ileus Referrals: PCP,None [Primary Care Provider] - Forms: ED Department Discharge Additional Instructions: The following information is given to patients seen in the emergency department who are being discharged to home. This information is to outline your options for follow-up care. We provide all patients seen in our emergency department with a follow-up referral. The need for follow-up, as well as the timing and circumstances, are variable depending upon the specifics of your emergency department visit. If you don't have a primary care physician on staff, we will provide you with a referral. We always advise you to contact your personal physician following an emergency department visit to inform them of the circumstance of the visit and for follow-up with them and/or the need for any referrals to a consulting specialist. The emergency department will also refer you to a specialist when appropriate. This referral assures that you have the opportunity for follow-up care with a specialist. All of these measure are taken in an effort to provide you with optimal care, which includes your follow-up. Under all circumstances we always encourage you to contact your private physician who remains a resource for coordinating your care. When calling for follow-up care, please make the office aware that this follow-up is from your recent emergency room visit. If for any reason you are refused follow-up, please contact the [facility] Emergency Department at and asked to speak to the emergency department charge nurse. Estella for nausea Followup will OB as previously scheduled [facility] [address] [place] [id number] <Vandana George - Last Filed: 11/22/16 09:28> ED HPI GENERAL MEDICAL PROBLEM - History of Present Illness INITIAL COMMENTS - FREE TEXT/NARRATIVE: Patient was signed out to me by Dr. Avina for disposition after reviewing pending radiologic studies. She did have a CT of her abdomen showing wall thickening of her small bowel suggesting acute enteritis with an ileus. She also has moderate amount of dense fluid in her lower abdomen and pelvis suggesting the presence of blood. Patient did recently have a 3 days ago. She also has a known diagnosis of cholelithiasis and is confirmed again here today without signs of choleycystitis. Patient is being discharged with Zofran she has and followup with OB. She is anemic with H&H of 9 and 29 with a normal blood pressure no pulse in the 70s. Departure - Departure Time of Disposition: 09:27 Condition: good
[2016-11-22 06:10] LABS: CHLORIDE,CL 105 mmol/L (98-110); SODIUM,NA 138 mmol/L (136-146)
[2016-11-22] MEDS ORDERED: Iopamidol 755 MG/ML 500 ML Multipack Bottle IVPUSH STA (07:14)
[2016-11-22 10:18] VITALS: BP 107/66
--- NOTE | 2016-11-22 16:03 | CR ---
EXAM DATE: 11/22/16 PATIENT'S AGE: 31 Patient: RITA MARSH Facility: [place], [place] Site . Site : 1985 Study: XRay Chest [id number]/9/2017 6:42:00 AM Ordering Physician: Viral Parra Final Report: INDICATION: Post pain TECHNIQUE: Chest 1 view. COMPARISON: None FINDINGS: Cardiovascular and mediastinum: Heart size and vasculature are normal in caliber and appearance. Mediastinum is within normal limits. Lungs and pleural space: Lungs are clear. No sign of infiltrate or mass. No sign of pleural effusion. No pneumothorax. Bones and soft tissues: No significant findings. IMPRESSION: Unremarkable chest. Dictated by: Jaylan Henderson MD @ 11/22/2016 06:46:32 (Electronic Signature) Report Signed by Proxy and Original Signed Document filed in the Medical Record. [facility]
--- NOTE | 2016-11-22 16:04 | US ---
EXAM DATE: 11/22/16 PATIENT'S AGE: 31 Patient: RITA MARSH Facility: [place], [place] Site Site : 1985 Study: US Abdomen [id number]/9/2017 7:29:58 AM Ordering Physician: AIDE Final Report: INDICATION: Abdomen pain with nausea and vomiting. 3 days status post section. TECHNIQUE: Ultrasound abdomen limited. Sonographic images of the right upper quadrant were obtained using ramsey-scale and color Doppler images. COMPARISON: None FINDINGS: Liver: Normal in size and echotexture. No masses. No intrahepatic biliary dilatation. Gallbladder: Multiple gallbladder stones are present. Normal wall thickness. No pericholecystic fluid. A positive Izaguirre`s sign was elicited. Common bile duct: 3 mm. Pancreas: Normal. Right kidney: 13 cm. Normal echotexture and cortex. No masses, stones, or hydronephrosis. IMPRESSION: There is cholelithiasis without additional specific signs of cholecystitis. Dictated by Jaylan Henderson MD @ 11/22/2016 8:04:28 AM Dictated by: Jaylan Henderson MD @ 11/22/2016 08:04:33 (Electronic Signature) Report Signed by Proxy and Original Signed Document filed in the Medical Record. [facility]
--- NOTE | 2016-11-22 16:06 | CT ---
EXAM DATE: 11/22/16 PATIENT'S AGE: 31 Patient: RITA MARSH Facility: [place], [place] Site . Site : 1985 Study: CT Abdomen/Pelvis W CONT [id number]/9/2017 7:52:13 AM Ordering Physician: Viral Parra Final Report: INDICATION: Abdominal pain with nausea and vomiting. 3 days status post section. TECHNIQUE: CT abdomen and pelvis acquired with 100 cc Isovue 370 IV contrast. COMPARISON: None. FINDINGS: LOWER CHEST: Unremarkable. LIVER: Unremarkable. Normal in size and attenuation. No masses. GALLBLADDER AND BILE DUCTS: Small gallbladder stones are present. Gallbladder is mildly dilated but does not appear grossly inflamed. No biliary dilatation. PANCREAS: Unremarkable. No mass or inflammation. SPLEEN: Unremarkable. Normal in size. No masses. ADRENAL GLANDS: Unremarkable. No nodules. KIDNEYS: Unremarkable. No masses, stones, or hydronephrosis. GI TRACT: There is diffuse distention of the small bowel measuring up to 3.4 cm with multiple air-fluid levels. There is mild air distention of the transverse colon. Wall thickening is present and a few mid to distal small bowel loops. Normal appendix. VASCULATURE: Unremarkable. LYMPH NODES: No lymphadenopathy. OMENTUM/PERITONEUM: Small to moderate amount of free fluid is present in the lower abdomen and pelvis. This fluid is somewhat dense measuring 20-30 Hounsfield units. PELVIS: There are expected postoperative changes from a recent section. There is a appearance of the uterus. BONES: Unremarkable for age. IMPRESSION: 1. There is distention of the small bowel greater than the colon. There is also wall thickening and mid to distal small bowel loops. Acute enteritis resulting in an ileus is favored over mechanical bowel obstruction. 2. Small to moderate amount of somewhat dense fluid is present in the lower abdomen and pelvis. The density of the fluid suggests the presence of blood products. No sign of focal hematoma or active hemorrhage. 3. Postoperative changes from recent section are otherwise within normal limits. 4. Cholelithiasis. Dictated by Jaylan Henderson MD @ 11/22/2016 8:23:38 AM Dictated by: Jaylan Henderson MD @ 11/22/2016 08:23:43 (Electronic Signature) Report Signed by Proxy and Original Signed Document filed in the Medical Record. [facility]
== END 2016-11-22 10:15 | disposition home or self-care (01) ==
LOC: MW.ED 05:37
DX: O99.63 Diseases of the digestive system complicating the puerperium (principal); K52.9 Noninfective gastroenteritis and colitis, unspecified; K80.20 Calculus of gallbladder without cholecystitis without obstruction; K91.3 Postprocedural intestinal obstruction; O99.335 Smoking (tobacco) complicating the puerperium; F17.210 Nicotine dependence, cigarettes, uncomplicated; O99.215 Obesity complicating the puerperium; O90.81 Anemia of the puerperium; Z88.6 Allergy status to analgesic agent; Z88.8 Allergy status to other drugs, medicaments and biological substances; Z98.890 Other specified postprocedural states; Y83.8 Other surgical procedures as the cause of abnormal reaction of the patient, or of later complication, without mention of misadventure at the time of the procedure
CPT/HCPCS: 36415; 71010; 74177; 76705; 80053; 83690; 85025; 96361; 96374; 96375; 99284; J1885; J2405; J7040; Q9967

== ENCOUNTER → 2016-11-27 | Outpatient (CLI) | payer MEDICAID | LOC: MW.CHOBGYN 15:15 | PROVIDERS: ATTEND Obstetrics & Gynecology | DX: D64.9 Anemia, unspecified (principal) | CPT/HCPCS: 36415; 85014; 85018 ==

== ENCOUNTER 2017-07-06 12:46 | Emergency (ER) | payer SELFPAY ==
[2017-07-06] MEDS ORDERED: Lidocaine 2% Viscous Solution 15 ML Cup PO ONE (12:55)
[2017-07-06] MEDS ORDERED: Benzocaine 20% Topical Spray UD MUCMEM ONE (12:55)
[2017-07-06 12:59] VITALS: BP 123/78
--- NOTE | 2017-07-06 13:00 | EDM.PDOC ---
ED HPI GENERAL MEDICAL PROBLEM - General Chief Complaint: General Stated Complaint: TOOTHACHE Time Seen by Provider: 07/06/17 12:55 Source of Information: Reports: Patient History Limitations: Reports: No Limitations - History of Present Illness INITIAL COMMENTS - FREE TEXT/NARRATIVE: History of present illness: [32-year-old female presenting with complaints of left-sided upper tooth pain. Patient fractured a molar a period of a couple weeks ago and indicates that she' s been tolerating by mouth with [id number] pain medicine but now it is starting to swell and becoming more painful.] Review of systems: As per history of present illness and below otherwise all systems reviewed and negative. Past medical history: As per history of present illness and as reviewed below otherwise noncontributory. Surgical history: As per history of present illness and as reviewed below otherwise noncontributory. Social history: No reported history of drug or alcohol abuse. Family history: As per history of present illness and as reviewed below otherwise noncontributory. Physical exam: HEENT: Atraumatic, mild swelling to left maxilla, pupils reactive, negative for conjunctival pallor or scleral icterus, mucous membranes moist, throat clear, neck supple, nontender, trachea midline. Lungs: Clear to auscultation, breath sounds equal bilaterally, chest nontender. Heart: S1S2, regular, negative for clicks, rubs, or JVD. Abdomen: Soft, nondistended, nontender. Negative for masses or hepatosplenomegaly. Negative for costovertebral tenderness. Pelvis: Stable nontender. Genitourinary: Deferred. Rectal: Deferred. Extremities: Atraumatic, negative for cords or calf pain. Neurovascular unremarkable. Neuro: Awake, alert, oriented. Cranial nerves II through XII unremarkable. Cerebellum unremarkable. Motor and sensory unremarkable throughout. Exam nonfocal. Diagnostics: [] Therapeutics: [Dental balls] Impression: [#1 fractured tooth #2 dental abscess #3 dental caries] Plan: [Augmentin] Definitive disposition and diagnosis as appropriate pending reevaluation and review of above. - Related Data Allergies Allergy/AdvReac Type Severity Reaction Status Date / Time acetaminophen Allergy Severe Airway Verified 07/06/17 12:57 [From Tylenol Allergy Tightness Multi-Symptom] chlorpheniramine Allergy Severe Airway Verified 07/06/17 12:57 [From Tylenol Allergy Tightness Multi-Symptom] phenylephrine HCl Allergy Severe Airway Verified 07/06/17 12:57 [From Tylenol Allergy Tightness Multi-Symptom] Home Meds: Home Meds oxyCODONE HCl/Acetaminophen [Percocet 7.5-325 mg Tablet] 1 each PO Q4H PRN #30 tablet 11/21/16 [Rx] Ondansetron HCl [Zofran] 4 mg PO Q8HR PRN #12 tablet 11/22/16 [Rx] Amoxicillin/Potassium Clav [Augmentin 875-125 Tablet] 1 each PO BID #20 tablet 07/06/17 [Rx] Past Medical History HEENT History: Reports: None Cardiovascular History: Reports: None Respiratory History: Reports: None Gastrointestinal History: Reports: Cholelithiasis Genitourinary History: Reports: UTI, Recurrent 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: Musculoskeletal History: Reports: None Neurological History: Reports: None Psychiatric History: Reports: None Endocrine/Metabolic History: Reports: Diabetes, Gestational, Obesity/BMI 30+ Hematologic History: Reports: None Immunologic History: Reports: None Oncologic (Cancer) History: Reports: None Dermatologic History: Reports: None, Psoriasis - Infectious Disease History Infectious Disease History: Reports: Chicken Pox, MRSA - Past Surgical History HEENT Surgical History: Reports: Adenoidectomy, Myringotomy w Tube(s), Tonsillectomy Female Surgical History: Reports: Section Social & Family History - Family History Family Medical History: Noncontributory HEENT: Reports: None Neurological: Reports: CVA - Tobacco Use Smoking Status *Q: Current Every Day Smoker (0.5 PPD) Years of Tobacco use: 10 Packs/Tins Daily: 0.5 Second Hand Smoke Exposure: No - Caffeine Use Caffeine Use: Reports: Coffee, Soda Caffeine Use Comment: 2 drinks/day - Recreational Drug Use Recreational Drug Use: Yes Drug Use in Last 12 Months: Yes Recreational Drug Type: Reports: Marijuana/Hashish (In the last month) Recreational Drug Use Frequency: Socially Recreational Drug Last Use: 4 days ago ED ROS GENERAL - Review of Systems Review Of Systems: See Below (History of present illness) ED EXAM, GENERAL - Physical Exam Exam: See Below (See history of present illness) Departure - Departure Time of Disposition: 13:02 Disposition: Home, Self-Care 01 Condition: Good Clinical Impression: Dental abscess - Discharge Information Referrals: PCP,None [Primary Care Provider] - Additional Instructions: The following information is given to patients seen in the emergency department who are being discharged to home. This information is to outline your options for follow-up care. We provide all patients seen in our emergency department with a follow-up referral. The need for follow-up, as well as the timing and circumstances, are variable depending upon the specifics of your emergency department visit. If you don't have a primary care physician on staff, we will provide you with a referral. We always advise you to contact your personal physician following an emergency department visit to inform them of the circumstance of the visit and for follow-up with them and/or the need for any referrals to a consulting specialist. The emergency department will also refer you to a specialist when appropriate. This referral assures that you have the opportunity for follow-up care with a specialist. All of these measure are taken in an effort to provide you with optimal care, which includes your follow-up. Under all circumstances we always encourage you to contact your private physician who remains a resource for coordinating your care. When calling for follow-up care, please make the office aware that this follow-up is from your recent emergency room visit. If for any reason you are refused follow-up, please contact the [facility] Emergency Department at and asked to speak to the emergency department charge nurse. Take medication as directed Follow-up with dentist MARY Return to ED as needed as discussed
== END 2017-07-06 13:18 | disposition home or self-care (01) ==
LOC: MW.ED 12:46
DX: K04.7 Periapical abscess without sinus (principal); K02.9 Dental caries, unspecified; K03.81 Cracked tooth; F17.210 Nicotine dependence, cigarettes, uncomplicated; Z88.6 Allergy status to analgesic agent
CPT/HCPCS: 99282

== ENCOUNTER 2017-09-13 12:58 | Emergency (ER) | payer SELFPAY ==
[2017-09-13] MEDS ORDERED: Sodium Chloride 0.9% 1,000 ML IV ONE (13:19)
--- NOTE | 2017-09-13 13:22 | EDM.PDOC ---
ED HPI GENERAL MEDICAL PROBLEM - General Chief Complaint: Abdominal Pain Stated Complaint: ABD PAIN Time Seen by Provider: 09/13/17 13:20 Source of Information: Reports: Patient - History of Present Illness INITIAL COMMENTS - FREE TEXT/NARRATIVE: HISTORY AND PHYSICAL: History of present illness: [ Patient presents with right upper quadrant pain she rates 8 out of 10 nonradiating she has a history of gallstones diagnosed in 2014 on [place], she was at that time and did not have surgery performed, following this she became again delivering in November of this year. She has been asymptomatic for some time and has not been evaluated by surgeon as she is moved to [place]. No fever nausea vomiting chills sweats no chest pain shortness breath headache dizziness palpitation no bowel or urine symptoms ] Review of systems: As per history of present illness and below otherwise all systems reviewed and negative. Past medical history: As per history of present illness and as reviewed below otherwise noncontributory. Surgical history: As per history of present illness and as reviewed below otherwise noncontributory. Social history: No reported history of drug or alcohol abuse. Family history: As per history of present illness and as reviewed below otherwise noncontributory. Physical exam: HEENT: Atraumatic, normocephalic, pupils reactive, negative for conjunctival pallor or scleral icterus, mucous membranes moist, throat clear, neck supple, nontender, trachea midline. Lungs: Clear to auscultation, breath sounds equal bilaterally, chest nontender. Heart: S1S2, regular, negative for clicks, rubs, or JVD. Abdomen: Soft, nondistended, nontender. Negative for masses or hepatosplenomegaly. Negative for costovertebral tenderness. Pelvis: Stable nontender. Genitourinary: Deferred. Rectal: Deferred. Extremities: Atraumatic, negative for cords or calf pain. Neurovascular unremarkable. Neuro: Awake, alert, oriented. Cranial nerves II through XII unremarkable. Cerebellum unremarkable. Motor and sensory unremarkable throughout. Exam nonfocal. Diagnostics: [ cbc, cmp, ua hgc ] Therapeutics: [ns 1 L bolus and Zofran refused by patient Toradol 60 IM [place] 5 per 325 Left side Follow-up with general surgeon l] Impression: Biliary colic Definitive disposition and diagnosis as appropriate pending reevaluation and review of above. Right Abdomen Pain Score (Numeric/FACES): 8 - Related Data Allergies Allergy/AdvReac Type Severity Reaction Status Date / Time acetaminophen Allergy Severe Airway Verified 09/13/17 13:32 [From Tylenol Allergy Tightness Multi-Symptom] chlorpheniramine Allergy Severe Airway Verified 09/13/17 13:32 [From Tylenol Allergy Tightness Multi-Symptom] phenylephrine HCl Allergy Severe Airway Verified 09/13/17 13:32 [From Tylenol Allergy Tightness Multi-Symptom] Home Meds: Home Meds . 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: Musculoskeletal History: Reports: None Neurological History: Reports: None Psychiatric History: Reports: None Endocrine/Metabolic History: Reports: Diabetes, Gestational, Obesity/BMI 30+ Hematologic History: Reports: None Immunologic History: Reports: None Oncologic (Cancer) History: Reports: None Dermatologic History: Reports: None, Psoriasis - Infectious Disease History Infectious Disease History: Reports: Chicken Pox, MRSA - Past Surgical History HEENT Surgical History: Reports: Adenoidectomy, Myringotomy w Tube(s), Tonsillectomy Female Surgical History: Reports: Section Social & Family History - Family History Family Medical History: Noncontributory HEENT: Reports: None Neurological: Reports: CVA - Tobacco Use Smoking Status *Q: Current Every Day Smoker (0.5 PPD) Years of Tobacco use: 10 Packs/Tins Daily: 0.5 Second Hand Smoke Exposure: No - Caffeine Use Caffeine Use: Reports: Coffee, Soda Caffeine Use Comment: 2 drinks/day - Recreational Drug Use Recreational Drug Use: Yes Drug Use in Last 12 Months: Yes Recreational Drug Type: Reports: Marijuana/Hashish (In the last month) Recreational Drug Use Frequency: Socially Recreational Drug Last Use: 4 days ago ED ROS GENERAL - Review of Systems Review Of Systems: ROS reveals no pertinent complaints other than HPI. ED EXAM, GENERAL - Physical Exam Exam: See Below Course - Vital Signs Last Recorded V/S: Last Vital Signs Temp 97.6 F 09/13/17 13:25 Pulse 84 09/13/17 13:25 Resp 18 12/29/17 13:25 BP 113/76 09/13/17 13:25 Pulse Ox 98 09/13/17 13:25 - Orders/Labs/Meds Labs: Laboratory Tests 09/13/17 09/13/17 09/13/17 Range/Units 13:27 13:27 13:35 WBC 10.30 (4.0-11.0) K/uL RBC 5.61 (4.30-5.90) M/uL Hgb 12.8 (12.0-16.0) g/dL Hct 39.1 (36.0-46.0) % MCV 69.7 L (80.0-98.0) fL MCH 22.8 L (27.0-32.0) pg MCHC 32.7 (31.0-37.0) g/dL RDW Std Deviation 36.5 (28.0-62.0) fl RDW Coeff of Ruth 15 (11.0-15.0) % Plt Count 407 H (150-400) K/uL MPV 8.80 (7.40-12.00) fL Neutrophils % (Manual) 52 (48.0-80.0) % Band Neutrophils % 3 % Lymphocytes % (Manual) 38 (16.0-40.0) % Monocytes % (Manual) 7 (0.0-15.0) % Nucleated RBC % 0.0 /100WBC Absolute Seg Neuts 5.4 (1.4-5.7) Band Neutrophils # 0.3 Lymphocytes # (Manual) 3.9 H (0.6-2.4) Monocytes # (Manual) 0.7 (0.0-0.8) Sodium 138 (136-146) mmol/L Potassium 4.0 (3.5-5.1) mmol/L Chloride 104 (98-110) mmol/L Carbon Dioxide 25 (21-31) mmol/L BUN 15 (6.0-23.0) mg/dL Creatinine 0.7 (0.6-1.5) mg/dL Est Cr Clr Drug Dosing 82.88 mL/min Estimated GFR (MDRD) > 60.0 ml/min Glucose 153 H (60-110) mg/dL Calcium 9.7 (8.8-10.8) mg/dL Total Bilirubin 0.5 (0.1-1.5) mg/dL AST 13 (5-40) IU/L ALT 13 (8-54) IU/L Alkaline Phosphatase 74 (40-150) Total Protein 7.6 (6.0-8.0) g/dL Albumin 4.4 (3.5-5.0) g/dL Globulin 3.2 (2.0-3.5) g/dL Albumin/Globulin Ratio 1.4 (1.3-2.8) Amylase 75 (10-90) U/L Lipase 26 (7-80) U/L Urine Color Urine Appearance Urine pH (5.0-8.0) Ur Specific [place] (1.001-1.035) Urine Protein (NEGATIVE) mg/dL Urine Glucose (UA) (NEGATIVE) mg/dL Urine Ketones (NEGATIVE) mg/dL Urine Occult Blood (NEGATIVE) Urine Nitrite (NEGATIVE) Urine Bilirubin (NEGATIVE) Urine Urobilinogen (<2.0) EU/dL Ur Leukocyte Esterase (NEGATIVE) Urine RBC (0-2/HPF) Urine WBC (0-5/HPF) Ur Epithelial Cells (NONE-FEW) Urine Bacteria (NEGATIVE) Urine Mucus (NONE-MOD) Urine Sperm (NEGATIVE) Urine HCG, Qual NEGATIVE (NEGATIVE) 09/13/17 Range/Units 13:35 WBC (4.0-11.0) K/uL RBC (4.30-5.90) M/uL Hgb (12.0-16.0) g/dL Hct (36.0-46.0) % MCV (80.0-98.0) fL MCH (27.0-32.0) pg MCHC (31.0-37.0) g/dL RDW Std Deviation (28.0-62.0) fl RDW Coeff of Ruth (11.0-15.0) % Plt Count (150-400) K/uL MPV (7.40-12.00) fL Neutrophils % (Manual) (48.0-80.0) % Band Neutrophils % % Lymphocytes % (Manual) (16.0-40.0) % Monocytes % (Manual) (0.0-15.0) % Nucleated RBC % /100WBC Absolute Seg Neuts (1.4-5.7) Band Neutrophils # Lymphocytes # (Manual) (0.6-2.4) Monocytes # (Manual) (0.0-0.8) Sodium (136-146) mmol/L Potassium (3.5-5.1) mmol/L Chloride (98-110) mmol/L Carbon Dioxide (21-31) mmol/L BUN (6.0-23.0) mg/dL Creatinine (0.6-1.5) mg/dL Est Cr Clr Drug Dosing mL/min Estimated GFR (MDRD) ml/min Glucose (60-110) mg/dL Calcium (8.8-10.8) mg/dL Total Bilirubin (0.1-1.5) mg/dL AST (5-40) IU/L ALT (8-54) IU/L Alkaline Phosphatase (40-150) Total Protein (6.0-8.0) g/dL Albumin (3.5-5.0) g/dL Globulin (2.0-3.5) g/dL Albumin/Globulin Ratio (1.3-2.8) Amylase (10-90) U/L Lipase (7-80) U/L Urine Color YELLOW Urine Appearance CLEAR Urine pH 7.0 (5.0-8.0) Ur Specific [place] 1.020 (1.001-1.035) Urine Protein NEGATIVE (NEGATIVE) mg/dL Urine Glucose (UA) NEGATIVE (NEGATIVE) mg/dL Urine Ketones NEGATIVE (NEGATIVE) mg/dL Urine Occult Blood NEGATIVE (NEGATIVE) Urine Nitrite NEGATIVE (NEGATIVE) Urine Bilirubin NEGATIVE (NEGATIVE) Urine Urobilinogen 0.2 (<2.0) EU/dL Ur Leukocyte Esterase NEGATIVE (NEGATIVE) Urine RBC 0-1 (0-2/HPF) Urine WBC 0-1 (0-5/HPF) Ur Epithelial Cells OCCASIONAL (NONE-FEW) Urine Bacteria FEW (NEGATIVE) Urine Mucus LIGHT (NONE-MOD) Urine Sperm RARE (NEGATIVE) Urine HCG, Qual (NEGATIVE) Meds: Medications Discontinued Medications Generic Name Dose Route Start Last Admin Trade Name Freq PRN Reason Stop Dose Admin Sodium Chloride 1,000 mls @ 999 mls/hr 09/13/17 13:19 09/13/17 13:49 Normal Saline IV 09/13/17 14:19 Not Given STAT ONE Ketorolac Tromethamine 60 mg 09/13/17 13:44 Toradol IM 09/13/17 13:45 ONETIME ONE Ondansetron HCl 8 mg 09/13/17 13:34 09/13/17 13:50 Zofran IVPUSH 09/13/17 13:35 Not Given ONETIME ONE Departure - Departure Time of Disposition: 14:06 Disposition: Home, Self-Care 01 Condition: Good Clinical Impression: Biliary colic - Discharge Information Referrals: PCP,None [Primary Care Provider] - Forms: ED Department Discharge Additional Instructions: Medication as prescribed Return if symptoms persist worsen or fever nausea vomiting chills sweats with increased pain Follow-up with general surgeon, call number below to schedule appointment with a provider [facility] - General [facility] Professional Building [address] [place] [address], [address] [place] [address] The following information is given to patients seen in the emergency department who are being discharged to home. This information is to outline your options for follow-up care. We provide all patients seen in our emergency department with a follow-up referral. The need for follow-up, as well as the timing and circumstances, are variable depending upon the specifics of your emergency department visit. If you don't have a primary care physician on staff, we will provide you with a referral. We always advise you to contact your personal physician following an emergency department visit to inform them of the circumstance of the visit and for follow-up with them and/or the need for any referrals to a consulting specialist. The emergency department will also refer you to a specialist when appropriate. This referral assures that you have the opportunity for follow-up care with a specialist. All of these measure are taken in an effort to provide you with optimal care, which includes your follow-up. Under all circumstances we always encourage you to contact your private physician who remains a resource for coordinating your care. When calling for follow-up care, please make the office aware that this follow-up is from your recent emergency room visit. If for any reason you are refused follow-up, please contact the [facility] emergency department at and asked to speak to the emergency department charge nurse.
[2017-09-13] MEDS ORDERED: Ondansetron 4 MG/2 ML SDV IVPUSH ONE (13:34)
[2017-09-13] MEDS ORDERED: Ketorolac 60 MG/2 ML SDV IM ONE (13:44)
[2017-09-13 14:00] LABS: CHLORIDE,CL 104 mmol/L (98-110); SODIUM,NA 138 mmol/L (136-146)
[2017-09-13 14:29] VITALS: BP 113/73
== END 2017-09-13 14:19 | disposition home or self-care (01) ==
LOC: MW.ED 12:58
DX: K80.50 Calculus of bile duct without cholangitis or cholecystitis without obstruction (principal); F17.210 Nicotine dependence, cigarettes, uncomplicated; Z88.6 Allergy status to analgesic agent; Z88.8 Allergy status to other drugs, medicaments and biological substances
CPT/HCPCS: 36415; 80053; 81001; 81025; 82150; 83690; 85027; 96372; 99284; J1885; 99283

== ENCOUNTER 2017-10-03 17:37 | Observation (INO) | payer SELFPAY ==
--- NOTE | 2017-10-03 17:52 | EDM.PDOC ---
<ViralFidel - Last Filed: 10/03/17 17:50> ED HPI GENERAL MEDICAL PROBLEM - General Chief Complaint: Abdominal Pain Stated Complaint: LOWER ABDOMINAL PAIN Time Seen by Provider: 10/03/17 17:48 - History of Present Illness INITIAL COMMENTS - FREE TEXT/NARRATIVE: HISTORY AND PHYSICAL: History of present illness: Patient 32-year-old white female presents concerned abdominal pain 24-48 hours this is lower abdominal pain is not well localized without associated fever chills nausea vomiting or other complaints patient does have a history of cholelithiasis and is scheduled for surgery she states this pain is different than episode she had the past she denies trauma denies vaginal discharge or irregular bleeding and states she has had prior tubal ligation and thinks is no significant chance of Review of systems: As per history of present illness and below otherwise all systems reviewed and negative. Past medical history: As per history of present illness and as reviewed below otherwise noncontributory. Surgical history: As per history of present illness and as reviewed below otherwise noncontributory. Social history: No reported history of drug or alcohol abuse. Family history: As per history of present illness and as reviewed below otherwise noncontributory. Physical exam: HEENT: Atraumatic, normocephalic, pupils reactive, negative for conjunctival pallor or scleral icterus, mucous membranes moist, throat clear, neck supple, nontender, trachea midline. Lungs: Clear to auscultation, breath sounds equal bilaterally, chest nontender. Heart: S1S2, regular, negative for clicks, rubs, or JVD. Abdomen: Soft, protuberant with some mild tenderness that is not well localized no rebound no guarding Negative for masses or hepatosplenomegaly. Negative for costovertebral tenderness. Pelvis: Stable nontender. Genitourinary: Deferred. Rectal: Deferred. Extremities: Atraumatic, negative for cords or calf pain. Neurovascular unremarkable. Neuro: Awake, alert, oriented. Cranial nerves II through XII unremarkable. Cerebellum unremarkable. Motor and sensory unremarkable throughout. Exam nonfocal. Diagnostics: BC CMP lipase UA hCG urine drug screen CT abdomen and pelvis Therapeutics: saline 1 L bolus Toradol 30 mg IV Impression: #1 abdominal pain #2 history of cholelithiasis Definitive disposition and diagnosis as appropriate pending reevaluation and review of above. Lower Abdominal Pain Score (Numeric/FACES): 9 - Related Data Allergies Allergy/AdvReac Type Severity Reaction Status Date / Time acetaminophen Allergy Severe Airway Verified 10/03/17 17:46 [From Tylenol Allergy Tightness Multi-Symptom] chlorpheniramine Allergy Severe Airway Verified 10/03/17 17:46 [From Tylenol Allergy Tightness Multi-Symptom] phenylephrine HCl Allergy Severe Airway Verified 10/03/17 17:46 [From Tylenol Allergy Tightness Multi-Symptom] Home Meds: Home Meds . 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: Musculoskeletal History: Reports: None Neurological History: Reports: None Psychiatric History: Reports: None Endocrine/Metabolic History: Reports: Diabetes, Gestational, Obesity/BMI 30+ Hematologic History: Reports: None Immunologic History: Reports: None Oncologic (Cancer) History: Reports: None Dermatologic History: Reports: None, Psoriasis - Infectious Disease History Infectious Disease History: Reports: Chicken Pox - Past Surgical History HEENT Surgical History: Reports: Adenoidectomy, Myringotomy w Tube(s), Tonsillectomy Female Surgical History: Reports: Section, Tubal Ligation Social & Family History - Family History Family Medical History: Noncontributory HEENT: Reports: None Neurological: Reports: CVA - Tobacco Use Smoking Status *Q: Current Every Day Smoker Years of Tobacco use: 11 Packs/Tins Daily: 0.5 Second Hand Smoke Exposure: No - Caffeine Use Caffeine Use: Reports: Coffee, Soda Caffeine Use Comment: 2 drinks/day - Recreational Drug Use Recreational Drug Use: No Drug Use in Last 12 Months: Yes Recreational Drug Type: Reports: Marijuana/Hashish (In the last month) Recreational Drug Use Frequency: Socially Recreational Drug Last Use: 4 days ago ED ROS GENERAL - Review of Systems Review Of Systems: ROS reveals no pertinent complaints other than HPI. ED EXAM, GENERAL - Physical Exam Exam: See Below (dictation) Course - Vital Signs Last Recorded V/S: Last Vital Signs Temp 98.5 F 10/03/17 19:07 Pulse 91 10/03/17 19:07 Resp 14 01/18/18 19:07 BP 116/75 10/03/17 19:07 Pulse Ox 100 10/03/17 19:07 - Orders/Labs/Meds Orders: Active Orders 24 hr Category Date Time Status Abdomen Pelvis wo Cont [CT] Stat Exams 10/03/17 17:53 Taken Sodium Chloride 0.9% [Saline Flush] Med 10/03/17 17:53 Active 10 ml FLUSH ASDIRECTED PRN Sodium Chloride 0.9% [Saline Flush] Med 10/03/17 17:53 Active 2.5 ml FLUSH ASDIRECTED PRN Saline Lock Insert [OM.PC] Stat Oth 10/03/17 17:52 Ordered Medication Orders Sodium Chloride (Saline Flush) 10 ml FLUSH ASDIRECTED PRN PRN Reason: Keep Vein Open Last Admin: 10/03/17 18:26 Dose: 10 ml Sodium Chloride (Saline Flush) 2.5 ml FLUSH ASDIRECTED PRN PRN Reason: Keep Vein Open Last Admin: 10/03/17 18:25 Dose: 2.5 ml Labs: Laboratory Tests 10/03/17 10/03/17 10/03/17 Range/Units 18:10 18:10 18:10 WBC 21.75 H (4.0-11.0) K/uL RBC 5.39 (4.30-5.90) M/uL Hgb 12.1 (12.0-16.0) g/dL Hct 37.6 (36.0-46.0) % MCV 69.8 L (80.0-98.0) fL MCH 22.4 L (27.0-32.0) pg MCHC 32.2 (31.0-37.0) g/dL RDW Std Deviation 36.4 (28.0-62.0) fl RDW Coeff of Ruth 15 (11.0-15.0) % Plt Count 425 H (150-400) K/uL MPV 8.90 (7.40-12.00) fL Neut % (Auto) 84.2 H (48.0-80.0) % Lymph % (Auto) 10.3 L (16.0-40.0) % Barnes % (Auto) 5.1 (0.0-15.0) % Eos % (Auto) 0.3 (0.0-7.0) % Baso % (Auto) 0.1 (0.0-1.5) % Neut # (Auto) 18.3 H (1.4-5.7) K/uL Lymph # (Auto) 2.2 (0.6-2.4) K/uL Barnes # (Auto) 1.1 H (0.0-0.8) K/uL Eos # (Auto) 0.1 (0.0-0.7) K/uL Baso # (Auto) 0.0 (0.0-0.1) K/uL Nucleated RBC % 0.0 /100WBC Nucleated RBCs # 0 K/uL Sodium 136 (136-146) mmol/L Potassium 4.0 (3.5-5.1) mmol/L Chloride 102 (98-110) mmol/L Carbon Dioxide 22 (21-31) mmol/L BUN 13 (6.0-23.0) mg/dL Creatinine 1.0 (0.6-1.5) mg/dL Est Cr Clr Drug Dosing 58.01 mL/min Estimated GFR (MDRD) > 60.0 ml/min Glucose 112 H (60-110) mg/dL Calcium 9.7 (8.8-10.8) mg/dL Total Bilirubin 0.8 (0.1-1.5) mg/dL AST 11 (5-40) IU/L ALT 12 (8-54) IU/L Alkaline Phosphatase 76 (40-150) Total Protein 7.5 (6.0-8.0) g/dL Albumin 4.4 (3.5-5.0) g/dL Globulin 3.1 (2.0-3.5) g/dL Albumin/Globulin Ratio 1.4 (1.3-2.8) Lipase 11 (7-80) U/L HCG, Qual NEGATIVE (NEG) Urine Color Urine Appearance Urine pH (5.0-8.0) Ur Specific [place] (1.001-1.035) Urine Protein (NEGATIVE) mg/dL Urine Glucose (UA) (NEGATIVE) mg/dL Urine Ketones (NEGATIVE) mg/dL Urine Occult Blood (NEGATIVE) Urine Nitrite (NEGATIVE) Urine Bilirubin (NEGATIVE) Urine Urobilinogen (<2.0) EU/dL Ur Leukocyte Esterase (NEGATIVE) Urine RBC (0-2/HPF) Urine WBC (0-5/HPF) Ur Epithelial Cells (NONE-FEW) Urine Bacteria (NEGATIVE) Urine Opiates Screen (NEGATIVE) Ur Oxycodone Screen (NEGATIVE) Urine Methadone Screen (NEGATIVE) Ur Barbiturates Screen (NEGATIVE) Ur Phencyclidine Scrn (NEGATIVE) Ur Amphetamine Screen (NEGATIVE) U Methamphetamines Scrn (NEGATIVE) U Benzodiazepines Scrn (NEGATIVE) U Cocaine Metab Screen (NEGATIVE) U Marijuana (THC) Screen (NEGATIVE) 10/03/17 10/03/17 Range/Units 18:15 18:15 WBC (4.0-11.0) K/uL RBC (4.30-5.90) M/uL Hgb (12.0-16.0) g/dL Hct (36.0-46.0) % MCV (80.0-98.0) fL MCH (27.0-32.0) pg MCHC (31.0-37.0) g/dL RDW Std Deviation (28.0-62.0) fl RDW Coeff of Ruth (11.0-15.0) % Plt Count (150-400) K/uL MPV (7.40-12.00) fL Neut % (Auto) (48.0-80.0) % Lymph % (Auto) (16.0-40.0) % Barnes % (Auto) (0.0-15.0) % Eos % (Auto) (0.0-7.0) % Baso % (Auto) (0.0-1.5) % Neut # (Auto) (1.4-5.7) K/uL Lymph # (Auto) (0.6-2.4) K/uL Barnes # (Auto) (0.0-0.8) K/uL Eos # (Auto) (0.0-0.7) K/uL Baso # (Auto) (0.0-0.1) K/uL Nucleated RBC % /100WBC Nucleated RBCs # K/uL Sodium (136-146) mmol/L Potassium (3.5-5.1) mmol/L Chloride (98-110) mmol/L Carbon Dioxide (21-31) mmol/L BUN (6.0-23.0) mg/dL Creatinine (0.6-1.5) mg/dL Est Cr Clr Drug Dosing mL/min Estimated GFR (MDRD) ml/min Glucose (60-110) mg/dL Calcium (8.8-10.8) mg/dL Total Bilirubin (0.1-1.5) mg/dL AST (5-40) IU/L ALT (8-54) IU/L Alkaline Phosphatase (40-150) Total Protein (6.0-8.0) g/dL Albumin (3.5-5.0) g/dL Globulin (2.0-3.5) g/dL Albumin/Globulin Ratio (1.3-2.8) Lipase (7-80) U/L HCG, Qual (NEG) Urine Color YELLOW Urine Appearance CLEAR Urine pH 6.5 (5.0-8.0) Ur Specific [place] 1.010 (1.001-1.035) Urine Protein NEGATIVE (NEGATIVE) mg/dL Urine Glucose (UA) NEGATIVE (NEGATIVE) mg/dL Urine Ketones NEGATIVE (NEGATIVE) mg/dL Urine Occult Blood NEGATIVE (NEGATIVE) Urine Nitrite NEGATIVE (NEGATIVE) Urine Bilirubin NEGATIVE (NEGATIVE) Urine Urobilinogen 0.2 (<2.0) EU/dL Ur Leukocyte Esterase TRACE (NEGATIVE) Urine RBC 0-1 (0-2/HPF) Urine WBC 0-2 (0-5/HPF) Ur Epithelial Cells FEW (NONE-FEW) Urine Bacteria RARE (NEGATIVE) Urine Opiates Screen NEGATIVE (NEGATIVE) Ur Oxycodone Screen NEGATIVE (NEGATIVE) Urine Methadone Screen NEGATIVE (NEGATIVE) Ur Barbiturates Screen NEGATIVE (NEGATIVE) Ur Phencyclidine Scrn NEGATIVE (NEGATIVE) Ur Amphetamine Screen NEGATIVE (NEGATIVE) U Methamphetamines Scrn NEGATIVE (NEGATIVE) U Benzodiazepines Scrn NEGATIVE (NEGATIVE) U Cocaine Metab Screen NEGATIVE (NEGATIVE) U Marijuana (THC) Screen NEGATIVE (NEGATIVE) Meds: Medications Generic Name Dose Route Start Last Admin Trade Name Freq PRN Reason Stop Dose Admin Sodium Chloride 10 ml 10/03/17 17:53 10/03/17 18:26 Saline Flush FLUSH 10 ml ASDIRECTED PRN Administration Keep Vein Open Sodium Chloride 2.5 ml 10/03/17 17:53 10/03/17 18:25 Saline Flush FLUSH 2.5 ml ASDIRECTED PRN Administration Keep Vein Open Discontinued Medications Generic Name Dose Route Start Last Admin Trade Name Freq PRN Reason Stop Dose Admin Sodium Chloride 1,000 mls @ 999 mls/hr 10/03/17 17:53 10/03/17 18:25 Normal Saline IV 10/03/17 18:53 999 mls/hr STAT ONE Administration Ketorolac Tromethamine 30 mg 10/03/17 17:53 10/03/17 18:28 Toradol IVPUSH 10/03/17 17:54 30 mg ONETIME ONE Administration Departure - Departure Disposition: Refer to Observation Clinical Impression: Abdominal pain Qualifiers: Abdominal location: lower abdomen, unspecified Qualified Code(s): R10.30 - Lower abdominal pain, unspecified - Discharge Information Referrals: PCP,None [Primary Care Provider] - Forms: ED Department Discharge <Andrea San - Last Filed: 10/03/17 20:37> ED HPI GENERAL MEDICAL PROBLEM - History of Present Illness INITIAL COMMENTS - FREE TEXT/NARRATIVE: Seen and examined the patient above Abdomen abdominal tenderness with some mild guarding at this time no rebound tenderness slightly protuberant abdomen CT no contrast negative Assessment abdominal pain Right lower quadrant pain Leukocytosis Plan Dr. Moreno is been in to see the patient she's can admit and observe overnight Departure - Departure Time of Disposition: 20:37 Condition: Fair
[2017-10-03] MEDS ORDERED: Ketorolac 30 MG/ML SDV IVPUSH ONE (17:53)
[2017-10-03] MEDS ORDERED: Sodium Chloride 0.9% 10 ML Syringe FLUSH PRN (17:53)
[2017-10-03] MEDS ORDERED: Sodium Chloride 0.9% 2.5 ML Syringe FLUSH PRN (17:53)
[2017-10-03] MEDS ORDERED: Sodium Chloride 0.9% 1,000 ML IV ONE (17:53)
[2017-10-03 18:43] LABS: CHLORIDE,CL 102 mmol/L (98-110); SODIUM,NA 136 mmol/L (136-146)
[2017-10-03] MEDS ORDERED: Ondansetron 4 MG/2 ML SDV IVPUSH PRN (20:47)
[2017-10-03] MEDS ORDERED: Promethazine 25 MG/ML SDV IM PRN (20:47)
[2017-10-03] MEDS ORDERED: HYDROmorphone 2 MG/ML SDV IVPUSH PRN (20:47)
[2017-10-03] MEDS ORDERED: diphenhydrAMINE 50 MG/ML SDV IVPUSH PRN (20:47)
[2017-10-03] MEDS ORDERED: Metoclopramide 10 MG/2 ML SDV IV PRN (20:47)
--- NOTE | 2017-10-03 20:59 | PCM.HP ---
H&P History of Present Illness - General Date of Service: 10/03/17 Admit Problem/Dx: Admission Diagnosis/Problem Admission Diagnosis/Problem Abdominal pain Source of Information: Patient History Limitations: Reports: No Limitations - History of Present Illness Initial Comments - Free Text/Narative: Patient was awoken last night with sharp abdominal pain in the RLQ. She has never had pain like this before. The pain was 7/10 and somewhat constant but at times crampy. She has never had pain like this before. She is scheduled to have her GB removed at the end of this month. Her biliary colic pain was completely different than this. She denies any sick contacts. She denies fevers, chills, vomiting. She had a soft bowel movement this afternoon. She states that it other levi looked normal and denies hematochezia or melena. Lower Abdominal Pain Score (Numeric/FACES): 9 - Related Data Allergies/Adverse Reactions: Allergies Allergy/AdvReac Type Severity Reaction Status Date / Time acetaminophen Allergy Severe Airway Verified 10/03/17 17:46 [From Tylenol Allergy Tightness Multi-Symptom] chlorpheniramine Allergy Severe Airway Verified 10/03/17 17:46 [From Tylenol Allergy Tightness Multi-Symptom] phenylephrine HCl Allergy Severe Airway Verified 10/03/17 17:46 [From Tylenol Allergy Tightness Multi-Symptom] Home Medications: Home Meds . 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: Musculoskeletal History: Reports: None Neurological History: Reports: None Psychiatric History: Reports: None Endocrine/Metabolic History: Reports: Diabetes, Gestational, Obesity/BMI 30+ Hematologic History: Reports: None Immunologic History: Reports: None Oncologic (Cancer) History: Reports: None Dermatologic History: Reports: None, Psoriasis - Infectious Disease History Infectious Disease History: Reports: Chicken Pox - Past Surgical History HEENT Surgical History: Reports: Adenoidectomy, Myringotomy w Tube(s), Tonsillectomy Female Surgical History: Reports: Section, Tubal Ligation Social & Family History - Family History Family Medical History: Noncontributory HEENT: Reports: None Neurological: Reports: CVA - Tobacco Use Smoking Status *Q: Current Every Day Smoker Years of Tobacco use: 11 Packs/Tins Daily: 0.5 Second Hand Smoke Exposure: No - Caffeine Use Caffeine Use: Reports: Coffee, Soda Caffeine Use Comment: 2 drinks/day - Recreational Drug Use Recreational Drug Use: No Drug Use in Last 12 Months: Yes Recreational Drug Type: Reports: Marijuana/Hashish (In the last month) Recreational Drug Use Frequency: Socially Recreational Drug Last Use: 4 days ago H&P Review of Systems - Review of Systems: Review Of Systems: ROS reveals no pertinent complaints other than HPI. Exam - Exam Exam: See Below - Vital Signs Vital Signs: Last Vital Signs Temp 36.9 C 10/03/17 19:07 Pulse 91 10/03/17 19:07 Resp 14 10/03/17 19:07 BP 116/75 10/03/17 19:07 Pulse Ox 100 10/03/17 19:07 Weight: 66 kg - Exam General: Alert, Oriented Lungs: Clear to Auscultation, Normal Respiratory Effort Cardiovascular: Regular Rate, Regular Rhythm GI/Abdominal Exam: Normal Bowel Sounds, Soft, Distended, Tender (mild tenderness in the Lower abdomen ). No: Guarding, Rigid, Rebound Back Exam: Normal Inspection, Full Range of Motion Extremities: Normal Inspection, Normal Range of Motion Neuro Extensive - Mental Status: Alert, Oriented x3, Normal Mood/Affect - Patient Data Result Diagrams: 10/03/17 18:10 10/03/17 18:10 *Q Meaningful Use (ADM) - VTE *Q VTE Criteria *Q: - Stroke *Q Stroke Criteria *Q: - AMI *Q AMI Criteria *Q: - Problem List (1) Abdominal pain SNOMED Code(s): 08019336 ICD Code: R10.9 - UNSPECIFIED ABDOMINAL PAIN Status: Acute Current Visit : Yes Qualifiers: Abdominal location: lower abdomen, unspecified Qualified Code(s): R10.30 - Lower abdominal pain, unspecified Problem List Initiated/Reviewed/Updated: Yes Orders Last 24hrs: Active Orders 24 hr Category Date Time Status Patient Status [ADT] Routine ADT 10/03/17 20:48 Ordered Intake and Output [RC] QSHIFT Care 10/03/17 20:49 Ordered Oxygen Therapy [RC] PRN Care 10/03/17 20:48 Ordered RT Incentive Spirometry [RC] ASDIRECTED Care 10/03/17 20:47 Ordered Vital Signs [RC] PER UNIT ROUTINE Care 10/03/17 20:48 Ordered Nothing Per Oral Diet [DIET] Diet 10/03/17 Dinner Ordered CBC WITH AUTO DIFF [HEME] AM Lab 10/04/17 05:11 Ordered HYDROmorphone [Dilaudid] Med 10/03/17 20:47 Ordered 0.5 mg IVPUSH Q1H PRN Lactated Ringers @ 125 MLS/HR(1000ml) Med 10/03/17 21:00 Ordered Lactated Ringers [Ringers, Lactated] 1,000 ml IV ASDIRECTED Metoclopramide [Reglan] Med 10/03/17 20:47 Ordered 5 mg IV Q6H PRN Ondansetron [Zofran] Med 10/03/17 20:47 Ordered 4 mg IVPUSH Q6H PRN Piperacillin/Tazobactam [Piperacil-Tazobact] 3.375 gm Med 10/03/17 21:00 Ordered Sodium Chloride 0.9% [Normal Saline] 50 ml IV Q8H Promethazine [Phenergan] Med 10/03/17 20:47 Ordered 25 mg IM Q6H PRN diphenhydrAMINE [Benadryl] Med 10/03/17 20:47 Ordered 25 mg IVPUSH Q4H PRN Resuscitation Status Routine Resus Stat 10/03/17 20:47 Ordered Medication Orders Diphenhydramine HCl (Benadryl) 25 mg IVPUSH Q4H PRN PRN Reason: Itching Hydromorphone HCl (Dilaudid) 0.5 mg IVPUSH Q1H PRN PRN Reason: Pain (severe 7-10) Lactated Ringer's (Ringers, Lactated) 1,000 mls @ 125 mls/hr IV ASDIRECTED PIOTR Piperacillin Sod/Tazobactam (Sod 3.375 gm/ Sodium Chloride) 50 mls @ 100 mls/ hr IV Q8H PIOTR Metoclopramide HCl (Reglan) 5 mg IV Q6H PRN PRN Reason: Nausea Ondansetron HCl (Zofran) 4 mg IVPUSH Q6H PRN PRN Reason: Nausea/Vomiting Promethazine HCl (Phenergan) 25 mg IM Q6H PRN PRN Reason: Nausea Sodium Chloride (Saline Flush) 10 ml FLUSH ASDIRECTED PRN PRN Reason: Keep Vein Open Last Admin: 10/03/17 18:26 Dose: 10 ml Sodium Chloride (Saline Flush) 2.5 ml FLUSH ASDIRECTED PRN PRN Reason: Keep Vein Open Last Admin: 10/03/17 18:25 Dose: 2.5 ml Assessment/Plan Comment:: Patient has a leukocytosis with a left shift. Her CT abdomen/pelvis was normal. She is distended on exam but not peritoneal. Her abdominal pain was mild on my exam. Will admit to the hospital for close monitoring. Will keep strict NPO overnight, give fluid resuscitation, IV dilaudid prn pain and start IV zosyn. If her abdominal exam worsens overnight, her white count rises, or her vitals become unstable I will consider taking her for a exploratory laparoscopy.
[2017-10-03] MEDS: Piperacillin/Tazobactam 3.375 GM in Sodium Chloride 0.9% 50 ML IV SCH (21:01)
[2017-10-03] MEDS: Lactated Ringers 1,000 ML IV SCH (22:38)
[2017-10-04] MEDS: Lactated Ringers 1,000 ML IV SCH ×2 (05:24→14:07)
[2017-10-04] MEDS: Piperacillin/Tazobactam 3.375 GM in Sodium Chloride 0.9% 50 ML IV SCH ×2 (05:24→12:48)
--- NOTE | 2017-10-04 08:38 | PCM.PN ---
- General Info Date of Service: 10/04/17 Subjective Update: Patient did well overnight. She awoke at 2 am and used one dose of IV dilaudid. With this her pain resolved. This morning she feels much improved. Her lower abdominal crampy pain is much less. She feels less distended. She denies any nauses, vomting, fever, chills. Vitals stable overnight. Patient urinating. Functional Status: Reports: Pain Controlled, Ambulating, Urinating, Incentive Spirometry - Patient Data Vitals - Most Recent: Last Vital Signs Temp 36.9 C 10/04/17 08:08 Pulse 87 10/04/17 08:08 Resp 18 10/04/17 08:08 BP 85/51 L 10/04/17 08:08 Pulse Ox 98 10/04/17 08:08 Weight - Most Recent: 65.589 kg I&O - Last 24 Hours: Intake & Output 10/03/17 10/04/17 10/04/17 22:59 06:59 14:59 Intake Total 1000 1050 Output Total 200 Balance 1000 850 Lab Results Last 24 Hours: Laboratory Results - last 24 hr 10/04/17 Range/Units 05:47 WBC 13.79 H (4.0-11.0) K/uL RBC 4.50 (4.30-5.90) M/uL Hgb 10.1 L (12.0-16.0) g/dL Hct 31.6 L (36.0-46.0) % MCV 70.2 L (80.0-98.0) fL MCH 22.4 L (27.0-32.0) pg MCHC 32.0 (31.0-37.0) g/dL RDW Std Deviation 36.8 (28.0-62.0) fl RDW Coeff of Ruth 15 (11.0-15.0) % Plt Count 375 (150-400) K/uL MPV 9.20 (7.40-12.00) fL Neut % (Auto) 70.2 (48.0-80.0) % Lymph % (Auto) 20.2 (16.0-40.0) % [place] % (Auto) 7.8 (0.0-15.0) % Eos % (Auto) 1.7 (0.0-7.0) % Baso % (Auto) 0.1 (0.0-1.5) % Neut # (Auto) 9.7 H (1.4-5.7) K/uL Lymph # (Auto) 2.8 H (0.6-2.4) K/uL [place] # (Auto) 1.1 H (0.0-0.8) K/uL Eos # (Auto) 0.2 (0.0-0.7) K/uL Baso # (Auto) 0.0 (0.0-0.1) K/uL Nucleated RBC % 0.0 /100WBC Nucleated RBCs # 0 K/uL Med Orders - Current: Current Medications Diphenhydramine HCl (Benadryl) 25 mg IVPUSH Q4H PRN PRN Reason: Itching Hydromorphone HCl (Dilaudid) 0.5 mg IVPUSH Q1H PRN PRN Reason: Pain (severe 7-10) Last Admin: 10/04/17 02:12 Dose: 0.5 mg Lactated Ringer's (Ringers, Lactated) 1,000 mls @ 125 mls/hr IV ASDIRECTED [facility] Last Admin: 10/04/17 05:24 Dose: 125 mls/hr Piperacillin Sod/Tazobactam (Sod 3.375 gm/ Sodium Chloride) 50 mls @ 100 mls/ hr IV Q8H [facility] Last Admin: 10/04/17 05:24 Dose: 100 mls/hr Metoclopramide HCl (Reglan) 5 mg IV Q6H PRN PRN Reason: Nausea Ondansetron HCl (Zofran) 4 mg IVPUSH Q6H PRN PRN Reason: Nausea/Vomiting Promethazine HCl (Phenergan) 25 mg IM Q6H PRN PRN Reason: Nausea Sodium Chloride (Saline Flush) 10 ml FLUSH ASDIRECTED PRN PRN Reason: Keep Vein Open Last Admin: 10/03/17 18:26 Dose: 10 ml Sodium Chloride (Saline Flush) 2.5 ml FLUSH ASDIRECTED PRN PRN Reason: Keep Vein Open Last Admin: 10/03/17 18:25 Dose: 2.5 ml Discontinued Medications Sodium Chloride (Normal Saline) 1,000 mls @ 999 mls/hr IV STAT ONE Stop: 10/03/17 18:53 Last Admin: 10/03/17 18:25 Dose: 999 mls/hr Ketorolac Tromethamine (Toradol) 30 mg IVPUSH ONETIME ONE Stop: 10/03/17 17:54 Last Admin: 10/03/17 18:28 Dose: 30 mg - Exam General: Alert, Oriented Lungs: Normal Respiratory Effort Cardiovascular: Regular Rate GI/Abdominal Exam: Normal Bowel Sounds, Soft, Non-Tender, Pelvis Stable, Other ( Abdominal distension greatly improved) Skin: Warm, Dry, Intact Psy/Mental Status: Alert, Normal Affect, Normal Mood - Problem List & Annotations (1) Abdominal pain SNOMED Code(s): 71188942 Code(s): R10.9 - UNSPECIFIED ABDOMINAL PAIN Status: Acute Current Visit: Yes Qualifiers: Abdominal location: lower abdomen, unspecified Qualified Code(s): R10.30 - Lower abdominal pain, unspecified - Problem List Review Problem List Initiated/Reviewed/Updated: Yes - My Orders Last 24 Hours: My Active Orders 10/03/17 21:00 Piperacillin/Tazobactam [Piperacil-Tazobact] 3.375 gm Sodium Chloride 0.9% [ Normal Saline] 50 ml IV Q8H 10/04/17 13:00 CBC W/O DIFF,HEMOGRAM [HEME] Routine 10/04/17 Lunch Clear Liquid Diet [DIET] - Assessment Assessment:: Abdominal pain, leukocytosis - Plan Plan:: Patient appears to be improving with IVF, bowel rest and antibiotics. Her abdominal exam is greatly improved. Her WBC today is 13K. I am still not sure where the white count is coming from given that she was not showing signs of peritonitis and she had a completely normal CT with a normal appearing appendix. Plan: -Continue IV dilaudid prn -Continue IVF -Advance diet to clears for now -Continue IV antibiotics. Recheck CBC this aftenoon at 1300. If WBC within normal limits will start on oral cipro and flagyl. If her WBC remains stable after this will d/c home. -I made Dr. Ramires aware of her as he was scheduled to take her GB out later this month. I may schedule the patient to follow up with him prior to this.
--- NOTE | 2017-10-04 13:35 | CT ---
EXAM DATE: 10/03/17 PATIENT'S AGE: 32 Patient: RITA MARSH Facility: [place], [place] Site . Site : 1985 Study: CT Abdomen/Pelvis [id number]/18/2018 6:58:04 PM Ordering Physician: Viral Parra Final Report: INDICATION: Abdominal pain since this morning TECHNIQUE: CT abdomen and pelvis without contrast. COMPARISON: 11/22/2016 FINDINGS: Lower chest: Unremarkable. Liver: Unremarkable. Spleen: Unremarkable. Pancreas: Unremarkable. Gallbladder and bile ducts: Unremarkable. Kidneys: Unremarkable. No kidney or ureteral stones and no hydronephrosis. Adrenal glands: Unremarkable. GI tract: Unremarkable. Appendix is normal. Vascular structures: Unremarkable. Lymph nodes: Unremarkable. Miscellaneous: Unremarkable. No free air or significant free fluid. Pelvic Organs: Unremarkable. Bones: Unremarkable for age. IMPRESSION: Unremarkable noncontrast CT of the abdomen and pelvis. No findings to explain the patient`s abdominal pain. Dictated by Eliceo Dela Cruz MD @ 10/03/2017 7:49:24 PM Dictated by: Eliceo Dela Cruz MD @ 10/03/2017 19:49:47 (Electronic Signature) Report Signed by Proxy. [facility]
[2017-10-04] MEDS: metroNIDAZOLE 250 MG Tab PO SCH ×2 (15:50→20:37)
[2017-10-04] MEDS: Ciprofloxacin 500 MG Tab PO SCH (20:37)
[2017-10-05] MEDS: metroNIDAZOLE 250 MG Tab PO SCH ×2 (04:02→09:03)
[2017-10-05 08:33] VITALS: BP 107/60
--- NOTE | 2017-10-05 08:49 | PCM.DCSUM1 ---
Discharge Summary - Hospital Course Free Text/Narrative:: Patient is a 32 yo female who presented to the ED with one day of increasing abdominal pain and distension. Her WBC was 21K with a left shift. Her CT abdomen /pelvis was normal. On physical exam she was mildly tender in the lower abdomen with no peritoneal signs. The decision was made to admit her to the hospital. She was made npo, given IVF, and started on Zosyn. The next day her WBC was down to 13K. Her vitals remained stable. Her diet was advanced to clears. That afternoon a repeat CBC was drawn that was normal. She was switched to oral cipro and flagyl. Her diet was advanced to regular. She tolerated all this very well. Her abdominal distension and pain significantly improved. She used very little pain meds over her stay. This morning she denies any pain and her distension is gone. She is tolerating a regular diet, urinating, passing gas and her vitals are stable. She is cleared for discharge home. - Discharge Data Discharge Date: 10/05/17 Discharge Disposition: Home, Self-Care 01 Condition: Good - Discharge Diagnosis/Problem(s) (1) Abdominal pain SNOMED Code(s): 76697312 ICD Code: R10.9 - UNSPECIFIED ABDOMINAL PAIN Status: Acute Current Visit : Yes Qualifiers: Abdominal location: lower abdomen, unspecified Qualified Code(s): R10.30 - Lower abdominal pain, unspecified - Patient Instructions Diet: Regular Diet as Tolerated Activity: Rest and Relax Today Driving: Do Not Drive Showering/Bathing: May Shower Notify Provider of: Fever, Increased Pain, Nausea and/or Vomiting - Discharge Plan Prescriptions/Med Rec: Ciprofloxacin [IJD: Ciprofloxacin HCl] 500 mg PO BID #10 tablet metroNIDAZOLE 250 mg PO Q6H #20 tablet Home Medications: Home Meds Ciprofloxacin [IJD: Ciprofloxacin HCl] 500 mg PO BID #10 tablet 10/05/17 [Rx] metroNIDAZOLE 250 mg PO Q6H #20 tablet 10/05/17 [Rx] Forms: ED Department Discharge Referrals: PCP,None [Primary Care Provider] - - Discharge Summary/Plan Comment DC Time >30 min.: No - General Info Functional Status: Reports: Pain Controlled, Tolerating Diet, Ambulating, Urinating - Review of Systems General: Reports: No Symptoms Pulmonary: Reports: No Symptoms Cardiovascular: Reports: No Symptoms Gastrointestinal: Reports: No Symptoms Genitourinary: Reports: No Symptoms - Patient Data Vitals - Most Recent: Last Vital Signs Temp 36.8 C 10/05/17 08:00 Pulse 84 10/05/17 08:00 Resp 22 H 10/05/17 08:00 BP 107/60 10/05/17 08:00 Pulse Ox 97 10/05/17 08:00 Weight - Most Recent: 65.589 kg I&O - Last 24 hours: Intake & Output 10/04/17 10/05/17 10/05/17 22:59 06:59 14:59 Intake Total 3054 918 Output Total 1000 600 Balance 2054 318 Lab Results - Last 24 hrs: Laboratory Results - last 24 hr 10/04/17 Range/Units 13:10 WBC 10.99 (4.0-11.0) K/uL RBC 4.42 (4.30-5.90) M/uL Hgb 9.9 L (12.0-16.0) g/dL Hct 30.9 L (36.0-46.0) % MCV 69.9 L (80.0-98.0) fL MCH 22.4 L (27.0-32.0) pg MCHC 32.0 (31.0-37.0) g/dL RDW Std Deviation 36.7 (28.0-62.0) fl RDW Coeff of Ruth 15 (11.0-15.0) % Plt Count 365 (150-400) K/uL MPV 8.70 (7.40-12.00) fL Nucleated RBC % 0.0 /100WBC Nucleated RBCs # 0 K/uL Med Orders - Current: Current Medications Ciprofloxacin (Ciprofloxacin Hcl) 500 mg PO BID [facility] Last Admin: 10/04/17 20:37 Dose: 500 mg Diphenhydramine HCl (Benadryl) 25 mg IVPUSH Q4H PRN PRN Reason: Itching Hydromorphone HCl (Dilaudid) 0.5 mg IVPUSH Q1H PRN PRN Reason: Pain (severe 7-10) Last Admin: 10/04/17 02:12 Dose: 0.5 mg Metoclopramide HCl (Reglan) 5 mg IV Q6H PRN PRN Reason: Nausea Metronidazole (Metronidazole) 250 mg PO Q6H [facility] Last Admin: 10/05/17 04:02 Dose: 250 mg Ondansetron HCl (Zofran) 4 mg IVPUSH Q6H PRN PRN Reason: Nausea/Vomiting Promethazine HCl (Phenergan) 25 mg IM Q6H PRN PRN Reason: Nausea Sodium Chloride (Saline Flush) 10 ml FLUSH ASDIRECTED PRN PRN Reason: Keep Vein Open Last Admin: 10/03/17 18:26 Dose: 10 ml Sodium Chloride (Saline Flush) 2.5 ml FLUSH ASDIRECTED PRN PRN Reason: Keep Vein Open Last Admin: 10/03/17 18:25 Dose: 2.5 ml Discontinued Medications Sodium Chloride (Normal Saline) 1,000 mls @ 999 mls/hr IV STAT ONE Stop: 10/03/17 18:53 Last Admin: 10/03/17 18:25 Dose: 999 mls/hr Lactated Ringer's (Ringers, Lactated) 1,000 mls @ 125 mls/hr IV ASDIRECTED [facility] Last Admin: 10/04/17 14:07 Dose: 125 mls/hr Piperacillin Sod/Tazobactam (Sod 3.375 gm/ Sodium Chloride) 50 mls @ 100 mls/ hr IV Q8H [facility] Last Admin: 10/04/17 12:48 Dose: 100 mls/hr Ketorolac Tromethamine (Toradol) 30 mg IVPUSH ONETIME ONE Stop: 10/03/17 17:54 Last Admin: 10/03/17 18:28 Dose: 30 mg - Exam General: Reports: Alert, Oriented Neck: Reports: Supple Lungs: Reports: Normal Respiratory Effort Cardiovascular: Reports: Regular Rate GI/Abdominal Exam: Normal Bowel Sounds, Soft, Non-Tender, No Distention Back Exam: Reports: Normal Inspection Extremities: Normal Inspection Skin: Reports: Warm, Dry, Intact *Q Meaningful Use (DIS) - VTE *Q VTE Criteria *Q: - Stroke *Q Stroke Criteria *Q: - AMI *Q AMI Criteria *Q:
[2017-10-05] MEDS: Ciprofloxacin 500 MG Tab PO SCH (09:03)
== END 2017-10-05 10:36 | disposition home or self-care (01) ==
LOC: MW.ED 17:37 → MW.MS 20:39 → UNDOADMOB 20:39 → MW.MS 20:48
PROVIDERS: ADMIT Surgery; ATTEND Surgery
DX: R10.31 Right lower quadrant pain (principal); E66.9 Obesity, unspecified; F17.200 Nicotine dependence, unspecified, uncomplicated; Z88.6 Allergy status to analgesic agent; Z88.8 Allergy status to other drugs, medicaments and biological substances; Z68.30 Body mass index [BMI] 30.0-30.9, adult; Z90.89 Acquired absence of other organs; Z98.51 Tubal ligation status
CPT/HCPCS: 36415; 74176; 80053; 80305; 81001; 83605; 83690; 84703; 85025; 85027; 96361; 96365; 96375; 99285; A9270; J1170; J1885; J2543; J7040; J7050; J7120; 96366; 96376; 99284; G0378

== ENCOUNTER 2017-10-15 07:15 | Day surgery (SDC) | payer SELFPAY ==
[~2017-10-15 07:15] MED LIST: Lactated Ringers 1,000 ML IV SCH; ceFAZolin 2 GM in Premix Bag 1 BAG IV ONE
[2017-10-15] MEDS ORDERED: Scopolamine 1.5 MG Transdermal Patch TRDERM PRN (08:46)
--- NOTE | 2017-10-15 08:48 | PCM.PREANE ---
Preanesthetic Assessment - Anesthesia/Transfusion/Family Hx Anesthesia History: Prior Anesthesia Without Reaction (c section) Family History of Anesthesia Reaction: No Transfusion History: Prior Transfusion Without Reaction - Review of Systems General: No Symptoms Pulmonary: No Symptoms Cardiovascular: No Symptoms Gastrointestinal: No Symptoms Neurological: No Symptoms Other: Reports: None - Physical Assessment NPO Status Date: 10/14/17 NPO Status Time: 20:00 O2 Sat by Pulse Oximetry: 97 Respiratory Rate: 16 Vital Signs: Last Vital Signs Temp 36.6 C 10/15/17 07:33 Pulse 75 10/15/17 07:33 Resp 16 10/15/17 07:33 BP 108/67 10/15/17 07:33 Pulse Ox 97 10/15/17 07:33 Height: 1.5 m Weight: 64.41 kg ASA Class: 1 Mental Status: Alert & Oriented x3 Airway Class: Mallampati = 1 Dentition: Reports: Normal Dentition ROM/Head Extension: Full Lungs: Clear to Auscultation, Normal Respiratory Effort Cardiovascular: Regular Rate, Regular Rhythm - Allergies Allergies/Adverse Reactions: Allergies Allergy/AdvReac Type Severity Reaction Status Date / Time acetaminophen Allergy Severe Airway Verified 10/09/17 15:46 [From Tylenol Allergy Tightness Multi-Symptom] chlorpheniramine Allergy Severe Airway Verified 10/09/17 15:46 [From Tylenol Allergy Tightness Multi-Symptom] phenylephrine HCl Allergy Severe Airway Verified 10/09/17 15:46 [From Tylenol Allergy Tightness Multi-Symptom] dust Allergy allergy Uncoded 10/09/17 15:46 testing feather/down Allergy allergy Uncoded 10/09/17 15:46 testing - Anesthesia Plan Pre-Op Medication Ordered: Other (scop) - Acknowledgements Anesthesia Type Planned: General Anesthesia Pt an Appropriate Candidate for the Planned Anesthesia: Yes Alternatives and Risks of Anesthesia Discussed w Pt/Guardian: Yes Pt/Guardian Understands and Agrees with Anesthesia Plan: Yes Additional Comments: able to take regular tylenol without allergic sx. 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: Musculoskeletal History: Reports: None Neurological History: Reports: None Psychiatric History: Reports: None Endocrine/Metabolic History: Reports: Diabetes, Gestational Hematologic History: Reports: Blood Transfusion(s) Other Hematologic History: blood transfusion after last Immunologic History: Reports: None Oncologic (Cancer) History: Reports: None Dermatologic History: Reports: Psoriasis - Infectious Disease History Infectious Disease History: Reports: Chicken Pox - Past Surgical History Head Surgeries/Procedures: Reports: None HEENT Surgical History: Reports: Adenoidectomy, Myringotomy w Tube(s), Tonsillectomy Respiratory Surgical History: Reports: None GI Surgical History: Reports: None Female Surgical History: Reports: Section, Tubal Ligation - SUBSTANCE USE Smoking Status *Q: Current Every Day Smoker Tobacco Use Within Last Twelve Months: Cigarettes Second Hand Smoke Exposure: Yes Recreational Drug Use History: Yes Recreational Drug Type: Reports: Marijuana/Hashish Recreational Drug Last Use: 4 days ago - HOME MEDS Home Medications: Home Meds . [No Known Home Meds] 10/09/17 [History] - CURRENT (IN HOUSE) MEDS Current Meds: Current Medications Lactated Ringer's (Ringers, Lactated) 1,000 mls @ 125 mls/hr IV ASDIRECTED [facility] Last Admin: 10/15/17 07:34 Dose: 125 mls/hr Discontinued Medications Cefazolin Sodium/Dextrose 2 gm (/ Premix) 50 mls @ 100 mls/hr IV ONETIME ONE Stop: 10/15/17 05:29
[2017-10-15] MEDS ORDERED: Propofol 200 MG/20 ML SDV ONE ×2 (08:51→09:20)
[2017-10-15] MEDS ORDERED: Bupivacaine 25%/EPINEPHrine/PF 30 ML ONE (09:15)
[2017-10-15] MEDS ORDERED: Lidocaine 2% 5 ML SDV ONE (09:20)
[2017-10-15] MEDS ORDERED: Midazolam 1 MG/ML 2 ML SDV ONE (09:20)
[2017-10-15] MEDS ORDERED: fentaNYL 100 MCG/2 ML SDV ONE ×2 (09:20→10:24)
[2017-10-15] MEDS ORDERED: Neostigmine Methylsulfate 1 MG/ML 5 ML Syringe ONE (09:21)
[2017-10-15] MEDS ORDERED: Rocuronium 10 MG/ML 10 ML Syringe ONE (09:21)
[2017-10-15] MEDS ORDERED: Glycopyrrolate 0.2 MG/ML SDV ONE (09:21)
[2017-10-15] MEDS ORDERED: Ondansetron 4 MG/2 ML SDV ONE (09:21)
[2017-10-15] MEDS ORDERED: ceFAZolin 1 GM Vial ONE (09:22)
[2017-10-15] MEDS ORDERED: Sodium Chloride 0.9% 20 ML ONE (09:22)
[2017-10-15] MEDS ORDERED: Octyl 2-Cyanoacrylate 1 Tube ONE (09:24)
[2017-10-15] MEDS ORDERED: fentaNYL 100 MCG/2 ML SDV IVPUSH PRN (10:27)
[2017-10-15] MEDS ORDERED: HYDROmorphone 2 MG/ML Syringe IVPUSH ONE (10:27)
--- NOTE | 2017-10-15 11:56 | PCM.OPNOTE ---
- General Post-Op/Procedure Note Date of Surgery/Procedure: 10/15/17 Operative Procedure(s): lap nilsa Findings: gb was distended, yellow and green with adhesion to surrounding cw chronic and acute cholecystitis, lots of stones, wall is not thickened;[id number] Pre Op Diagnosis: acute and chronic cholecystitis Post-Op Diagnosis: Same Anesthesia Technique: General ET Tube Primary Surgeon: Jani Ramires Pathology: sent; gb; please look at the damián color on the gall bladder wall Complications: None Condition: Good
[2017-10-15 13:41] VITALS: BP 103/64
[2017-10-15] MEDS ORDERED: Acetaminophen/oxyCODONE 325-5 MG Tab PO ONE (13:46)
--- NOTE | 2017-10-15 13:50 | PCM48HPAN ---
Post Anesthesia Note - EVALUATION WITHIN 48HRS OF ANESTHETIC Vital Signs in Normal Range: Yes Patient Participated in Evaluation: Yes Respiratory Function Stable: Yes Airway Patent: Yes Cardiovascular Function Stable: Yes Hydration Status Stable: Yes Pain Control Satisfactory: Yes Nausea and Vomiting Control Satisfactory: Yes Mental Status Recovered: Yes
--- NOTE | 2017-10-15 13:50 | PCM.POSTAN ---
POST ANESTHESIA ASSESSMENT - MENTAL STATUS Mental Status: Alert, Oriented - RESPIRATORY Respiratory Status: Respiratory Rate WNL, Airway Patent, O2 Saturation Stable - CARDIOVASCULAR CV Status: Pulse Rate WNL, Blood Pressure Stable - GASTROINTESTINAL GI Status: No Symptoms - POST OP HYDRATION Hydration Status: Adequate & Stable
--- NOTE | 2017-10-15 22:28 | OR ---
SURGEON: Jani Ramires MD DATE OF PROCEDURE: 10/15/2017 PREOPERATIVE DIAGNOSIS: Acute on chronic cholecystitis. POSTOPERATIVE DIAGNOSIS: Acute on chronic cholecystitis. PROCEDURE PERFORMED: Laparoscopic cholecystectomy. COMPLICATIONS: None. FINDING: Gallbladder was distended yellow and green with adhesion surrounding consistent with chronic acute cholecystitis, lots of stones, wall is not thickened. Incidental Findin. There is some discoloration like chocolate yellow-brown color on the hemidiaphragm and on the gallbladder wall, but the pelvis and the uterus does not seem to have any chocolate deposit; the patient's liver is slightly on the large side. PROCEDURE NOTE: The patient was taken to the operating room and placed in the supine position. After the intubation of general endotracheal anesthesia, the patient's abdomen was prepped and draped in the usual sterile fashion. Using iContact, a 12 mm trocar was placed supraumbilically and then followed with pneumoperitoneum. A 5 mm trocar was placed in the epigastrium and two 5 mm trocars placed in the right upper quadrant. The placement of the last three trocars was done under direct video supervision. Upon gaining entrance to the abdominal cavity, an extensive examination was then performed. The gallbladder was located and identified and retracted to the dome of the liver at the triangle of Calot. The cystic duct was clipped three more times and then using the endoscopic clip, was transected with placement of the endoscopic clip and transection was performed with care, ensuring the posterior prong of the instruments were clearly visualized prior to exercising the procedure. The gallbladder was dissected using electrocautery out of the liver bed and then removed using endoscopic bag through the umbilical site. The gallbladder was removed en bloc and there was no bile spillage and this was then followed with extensive irrigation until the bile was clear from blood and bile. The trocars were then removed under direct video supervision. The 12 mm umbilical site was then closed with deep stitches using 0 Vicryl followed with proximal stitches using 3-0 Vicryl and Dermabond. The other three trocar sites were closed with 3-0 Vicryl followed with approximation of skin with Dermabond. The patient was then awakened and extubated and transferred to the recovery room in hemodynamically stable condition. At the conclusion of the surgery, before closing the abdominal wound, instrument count and sponge count were done and were correct. The patient tolerated the procedure well and there were no intraoperative complications. Dr. Ramires was present through the whole procedure. Just before surgery, a timeout was called. The patient was identified and procedure identified and procedure started. At the conclusion of surgery, Surgicel was placed to help in the hemostasis. COCO RENE /[id number] MTDKosta
== END 2017-10-15 15:35 | disposition home or self-care (01) ==
LOC: MW.SDS 07:15
PROVIDERS: ATTEND Surgery
DX: K80.12 Calculus of gallbladder with acute and chronic cholecystitis without obstruction (principal); J30.89 Other allergic rhinitis; L40.9 Psoriasis, unspecified; F17.210 Nicotine dependence, cigarettes, uncomplicated; Z88.8 Allergy status to other drugs, medicaments and biological substances; Z87.440 Personal history of urinary (tract) infections; Z82.49 Family history of ischemic heart disease and other diseases of the circulatory system; Z80.0 Family history of malignant neoplasm of digestive organs; Z96.22 Myringotomy tube(s) status; Z98.890 Other specified postprocedural states
CPT/HCPCS: 47562; A9270; J0690; J2250; J2405; J3010; J7120; 00790; 88304; J2704

== ENCOUNTER 2019-08-08 23:12 | Emergency (ER) | payer SELFPAY ==
--- NOTE | 2019-08-08 23:29 | EDM.PDOC ---
ED HPI GENERAL MEDICAL PROBLEM - General Chief Complaint: General Stated Complaint: BOTH HANDS DISCLORED Time Seen by Provider: 08/08/19 23:27 - History of Present Illness INITIAL COMMENTS - FREE TEXT/NARRATIVE: HISTORY AND PHYSICAL: History of present illness: Patient's a 34-year-old female with no significant past medical history presents with concern of request for medical screening exam for discoloration of her hands bilaterally there's been no pain or other concerns. She denies trauma states she's not had similar episodes in the past Review of systems: As per history of present illness and below otherwise all systems reviewed and negative. Past medical history: As per history of present illness and as reviewed below otherwise noncontributory. Surgical history: As per history of present illness and as reviewed below otherwise noncontributory. Social history: No reported history of drug or alcohol abuse. Family history: As per history of present illness and as reviewed below otherwise noncontributory. Physical exam: HEENT: Atraumatic, normocephalic, pupils reactive, negative for conjunctival pallor or scleral icterus, mucous membranes moist, throat clear, neck supple, nontender, trachea midline. Lungs: Clear to auscultation, breath sounds equal bilaterally, chest nontender. Heart: S1S2, regular, negative for clicks, rubs, or JVD. Abdomen: Soft, nondistended, nontender. Negative for masses or hepatosplenomegaly. Negative for costovertebral tenderness. Pelvis: Stable nontender. Genitourinary: Deferred. Rectal: Deferred. Extremities: Atraumatic, negative for cords or calf pain. Neurovascular unremarkable. Neuro: Awake, alert, oriented. Cranial nerves II through XII unremarkable. Cerebellum unremarkable. Motor and sensory unremarkable throughout. Exam nonfocal. Diagnostics: None Therapeutics: None Impression: #1 medical screening exam Definitive disposition and diagnosis as appropriate pending reevaluation and review of above. - Related Data Allergies Allergy/AdvReac Type Severity Reaction Status Date / Time acetaminophen Allergy Severe Airway Verified 08/08/19 23:22 [From Tylenol Allergy Tightness Multi-Symptom] chlorpheniramine Allergy Severe Airway Verified 08/08/19 23:22 [From Tylenol Allergy Tightness Multi-Symptom] phenylephrine HCl Allergy Severe Airway Verified 08/08/19 23:22 [From Tylenol Allergy Tightness Multi-Symptom] dust Allergy allergy Uncoded 08/08/19 23:22 testing feather/down Allergy allergy Uncoded 08/08/19 23:22 testing Home Meds: Home Meds . [No Known Home Meds] 08/08/19 [History] Past Medical History - Past Health History Medical/Surgical History: Denies Medical/Surgical History HEENT History: Reports: None Cardiovascular History: Reports: None Respiratory History: Reports: None Gastrointestinal History: Reports: Cholelithiasis Genitourinary History: Reports: UTI, Recurrent [employer] History: Reports: Musculoskeletal History: Reports: None Neurological History: Reports: None Psychiatric History: Reports: None Endocrine/Metabolic History: Reports: Diabetes, Gestational Hematologic History: Reports: Blood Transfusion(s) Other Hematologic History: blood transfusion after last Immunologic History: Reports: None Oncologic (Cancer) History: Reports: None Dermatologic History: Reports: Psoriasis - Infectious Disease History Infectious Disease History: Reports: Chicken Pox - Past Surgical History Head Surgeries/Procedures: Reports: None HEENT Surgical History: Reports: Adenoidectomy, Myringotomy w Tube(s), Tonsillectomy Respiratory Surgical History: Reports: None GI Surgical History: Reports: Cholecystectomy Female Surgical History: Reports: Section, Tubal Ligation Social & Family History - Family History Family Medical History: Noncontributory HEENT: Reports: None Neurological: Reports: CVA - Tobacco Use Smoking Status *Q: Never Smoker - Caffeine Use Caffeine Use: Reports: Coffee, Soda Caffeine Use Comment: 2 drinks/day - Recreational Drug Use Recreational Drug Use: No ED ROS GENERAL - Review of Systems Review Of Systems: Comprehensive ROS is negative, except as noted in HPI. ED EXAM, GENERAL - Physical Exam Exam: See Below (See dictation) Course - Vital Signs Last Recorded V/S: Last Vital Signs Temp 36.4 C 08/08/19 23:12 Pulse 75 08/08/19 23:12 Resp 18 08/08/19 23:12 BP 122/88 08/08/19 23:12 Pulse Ox 98 08/08/19 23:12 Departure - Departure Time of Disposition: 23:28 Disposition: Home, Self-Care 01 Condition: Good Clinical Impression: Encounter for medical screening examination - Discharge Information Referrals: PCP,None [Primary Care Provider] - Additional Instructions: The following information is given to patients seen in the emergency department who are being discharged to home. This information is to outline your options for follow-up care. We provide all patients seen in our emergency department with a follow-up referral. The need for follow-up, as well as the timing and circumstances, are variable depending upon the specifics of your emergency department visit. If you don't have a primary care physician on staff, we will provide you with a referral. We always advise you to contact your personal physician following an emergency department visit to inform them of the circumstance of the visit and for follow-up with them and/or the need for any referrals to a consulting specialist. The emergency department will also refer you to a specialist when appropriate. This referral assures that you have the opportunity for followup care with a specialist. All of these measure are taken in an effort to provide you with optimal care, which includes your followup. Under all circumstances we always encourage you to contact your private physician who remains a resource for coordinating your care. When calling for followup care, please make the office aware that this follow-up is from your recent emergency room visit. If for any reason you are refused follow-up, please contact the [facility] emergency department at and asked to speak to the emergency department charge nurse. [facility] [address] [place] [id number] Follow-up primary care above call schedule an appointment return as needed as discussed
[2019-08-08 23:41] VITALS: BP 106/69; PULSE 74
== END 2019-08-08 23:40 | disposition home or self-care (01) ==
LOC: MW.ED 23:12
DX: Z13.9 Encounter for screening, unspecified (principal); R23.8 Other skin changes; Z88.6 Allergy status to analgesic agent; Z88.8 Allergy status to other drugs, medicaments and biological substances; Z91.09 Other allergy status, other than to drugs and biological substances
CPT/HCPCS: 93005; 99282; 99283-25

== ENCOUNTER 2023-03-05 20:48 | Emergency (ER) | payer SELFPAY ==
[2023-03-06 00:33] VITALS: BP 132/96; PULSE 71
== END 2023-03-06 00:15 | disposition home or self-care (01) ==
LOC: MW.ED 20:48
DX: L20.9 Atopic dermatitis, unspecified (principal); Z91.048 Other nonmedicinal substance allergy status; Z88.8 Allergy status to other drugs, medicaments and biological substances
CPT/HCPCS: 99282; 99283

== ENCOUNTER 2023-06-22 00:02 | Emergency (ER) | payer SELFPAY ==
[2023-06-22 00:37] LABS: APPEARANCE,URINE CLOUDY; COLOR,URINE RED; GLUCOSE,URINE NEGATIVE (NEGATIVE); KETONES,URINE TRACE mg/dL (NEGATIVE); LEUKOCYTE ESTERASE,URINE MODERATE (NEGATIVE); NITRITE,URINE POSITIVE (NEGATIVE); OCCULT BLOOD,URINE LARGE (NEGATIVE); PROTEIN,URINE 100 mg/dL (NEGATIVE)
[2023-06-22 00:39] LABS: BILIRUBIN,URINE SMALL (NEGATIVE)
[2023-06-22 00:47] LABS: BACTERIA,URINE FEW (NEGATIVE); EPITHELIAL CELLS,URINE RARE (NONE-FEW); RBC,URINE TOO NUMEROUS TO CT (0-2/HPF)
[2023-06-22] MEDS ORDERED: Morphine 2 MG/ML SYRINGE IVPUSH ONE (01:54)
[2023-06-22] MEDS ORDERED: Sodium Chloride 0.9% 1,000 ML IV ONE (01:55)
[2023-06-22 02:20] LABS: HEMOGLOBIN 12.7 g/dL (12.0-16.0); MEAN CORPUSCULAR HGB CONC 32.6 g/dL (32.0-36.0); MEAN CORPUSCULAR VOLUME 70.7 fL (83.0-99.0); MEAN PLATELET VOLUME 8.9 fL (9.4-12.3); PLATELET COUNT,PLT 417 K/uL (150-400); RED BLOOD CELL COUNT 5.52 M/uL (4.10-5.30); WHITE BLOOD CELL COUNT,WBC 13.89 K/uL (3.9-11.3)
[2023-06-22] MEDS ORDERED: cefTRIAXone 1 GM in Sodium Chloride 0.9% 50 ML IV ONE (02:21)
[2023-06-22] MEDS ORDERED: Ondansetron 4 MG/2 ML SDV IVPUSH ONE (02:29)
[2023-06-22] MEDS ORDERED: Iopamidol 755 MG/ML 500 ML Multipack Bottle IVPUSH ONE (02:40)
[2023-06-22 02:51] LABS: A/G RATIO 0.9 (0.9-1.6); ALBUMIN 3.6 g/dL (3.4-5.0); BILIRUBIN TOTAL 0.3 mg/dL (0.2-1.0); CALCIUM 8.9 mg/dL (8.5-10.1); CARBON DIOXIDE,CO2 28.1 mmol/L (21.0-32.0); CREATININE 0.9 mg/dL (0.6-1.0); EST CRCL DRUG DOSING (CG) 60.88 mL/min; POTASSIUM,K 3.7 mmol/L (3.5-5.1); PROTEIN TOTAL,TP 7.4 g/dL (6.4-8.2)
[2023-06-22 03:16] LABS: BASOPHILS ABSOLUTE MAN 0.1 (0.0-0.1); BASOPHILS PERCENT MAN 1 % (0.0-1.5); EOSINOPHILS ABSOLUTE MAN 0.6 (0.0-0.7); EOSINOPHILS PERCENT MAN 4 % (0.0-7.0)
[2023-06-22 03:17] LABS: LYMPHOCYTES ABSOLUTE MAN 4.3 (0.6-2.4); LYMPHOCYTES PERCENT MAN 31 % (16.0-40.0); MONOCYTES ABSOLUTE MAN 1.3 (0.0-0.8); MONOCYTES PERCENT MAN 9 % (0.0-15.0); SEG NEUTROPHILS ABSOLUTE MAN 7.6 (1.4-5.7); SEG NEUTROPHILS PERCENT MAN 55 % (48.0-80.0)
[2023-06-22 04:20] VITALS: BP 94/59; PULSE 64
== END 2023-06-22 04:23 | disposition home or self-care (01) ==
LOC: MW.ED 00:02
DX: N12 Tubulo-interstitial nephritis, not specified as acute or chronic (principal); Z79.899 Other long term (current) drug therapy; Z91.048 Other nonmedicinal substance allergy status; Z88.8 Allergy status to other drugs, medicaments and biological substances
CPT/HCPCS: 36415; 74177; 80053; 81001; 83690; 84703; 85025; 87086; 96365; 96375; 99284; J0696; J2270; J3490; J7030; Q9967